=== PATIENT | male | born 1945 | race Caucasian/White ===

== ENCOUNTER 2020-09-25 13:01 | Inpatient (IN) | payer MEDICARE, BC ==
[~2020-09-25 13:01] MED LIST: Iopamidol-370 76% 500 ML 1 ML ONE
[2020-09-25] MEDS ORDERED: Diltiazem 125 MG/25 ML ONE (13:08)
[2020-09-25 13:42] LABS: #Lymphocytes 1.2 thou/uL (1.20-3.40); #Monocytes 0.9 thou/uL (0.11-0.59); #Neutrophils 11.4 thou/uL (1.40-6.50); %Basophils 0.1 % (0.0-1.0); %Eosinophils 0.4 % (0.0-10.0); %Lymphocytes 8.6 % (21.0-51.0); %Monocytes 6.8 % (0.0-10.0); %Neutrophils 84.1 % (42.0-75.0); Hemoglobin 11.7 g/dL (14.0-18.0); Mean Corpuscular HGB CONC 31.8 g/dL (32.0-36.0); Mean Corpuscular Hemoglobin 28.2 pg (27.0-31.0); Mean Corpuscular Volume 88.6 fL (78.0-98.0); Platelet Count 411 thou/uL (130-400); RBC Distribution Width 13.8 % (11.5-14.5); Red Blood Cell (RBC) Count 4.14 mill/uL (4.70-6.10); White Blood Cell (WBC) Count 13.5 thou/uL (4.8-10.8)
--- NOTE | 2020-09-25 13:49 | RAD ---
EXAM: Chest one view: HISTORY: New onset atrial fibrillation, altered mental status COMPARISON: 08/22/2020 FINDINGS: Moderate left pleural effusion developing since prior study. Heart size: Borderline in size with decreased inspiration. Lungs: Moderate alveolar and groundglass and linear opacity changes in the left midlung zone with imp roving interstitial and groundglass opacity changes in the right chest. IMPRESSION: New onset developing left pleural effusion as well as progressive and worsening parenchymal changes i n the left midlung zone. Minimally improved right lung. Continued short-term follow-up.
[2020-09-25 14:01] LABS: ALT (SGPT) 35 U/L (8-55); AST (SGOT) 18 U/L (5-34); Albumin 2.5 g/dL (3.4-4.8); Alkaline Phosphatase 161 U/L (40-110); Anion Gap 13 mmol/L (10-20); BUN (Urea Nitrogen) 16 mg/dL (8.4-25.7); Bilirubin, Total 0.6 mg/dL (0.2-1.2); Calc. Creatinine Clearance 0 mL/min (70-130); Calcium 8.5 mg/dL (7.8-10.44); Carbon Dioxide 25 mmol/L (23-31); Chloride 102 mmol/L (98-107); Estimated GFR-MDRD Greater than 90; Globulin 3.9 g/dL (2.4-3.5); Glucose 122 mg/dL (83-110); Protein, Total 6.4 g/dL (5.8-8.1); Sodium 136 mmol/L (136-145)
[2020-09-25] MEDS ORDERED: Acetaminophen 500 MG TAB ONE (14:11)
[2020-09-25 14:21] LABS: INR-International Normal Ratio 1.2; PTT 37.2 sec (22.9-36.1); Prothrombin Time 15.1 sec (12.0-14.7)
--- NOTE | 2020-09-25 14:49 | CT ---
Exam: Head CT without contrast HISTORY: Altered mental status. COMPARISON: 05/05/2020 FINDINGS: Hemorrhage: No intraparenchymal hemorrhage or extra-axial hematoma. Brain parenchyma: Cortical paris-white matter differentiation is preserved. No mass effect or midline shift. Basilar cisterns are patent.Stable white matter hypodensities due to chronic small ischemic change. Ventricular system: Ventricles and sulci are patent and symmetric. Calvarium: Intact. Sinuses and mastoid air cells: Adequate aeration. IMPRESSION: No acute intracranial process.
--- NOTE | 2020-09-25 15:14 | CT ---
CT ABDOMEN AND PELVIS WITH IV CONTRAST: 09/25/20 HISTORY: Abdominal pain and back pain. COMPARISON: 08/17/17. FINDINGS: There are patchy areas of consolidation in the lung bases bilaterally, left larger than right with ac companying left pleural effusion. The is an approximately 2 cm hemangioma in the posterior segment of the right lobe of the liver which is stable. Multiple cysts in the pancreas are also stable. The spl een and adrenal glands are unremarkable. No calcified gallstones are seen. Small cysts in the kidneys are again seen. No free air, free fluid, or lymphadenopathy is seen in the abdomen or pelvis. The small bowel loops a re not abnormally dilated. There is fecal material in the rectum and colon. Vascular calcifications a re present without evidence of aneurysmal dilatation of the abdominal aorta. There is mild compressio n of L1 vertebral body. There are vertebral hemangiomas in the spine. IMPRESSION: 1. Bilateral bibasilar lung consolidation, left greater than right with accompanying left pleura l effusion. 2. Constipation. 3. Stable liver, pancreas and renal findings since 08/17/17. POS: OFF
--- NOTE | 2020-09-25 16:03 | PDOC.FPRHP ---
- History of Present Illness Chief Complaint: fall History of Present Illness: Patient states he fell and his back hurts. He feels "like I'm going to !" He also reports feeling like he is burning up. Patient unable to provide adequate history. Called patient's for additional history - she explained patient has been complaining of severe back pain for the past 2 days, his HH nurse examined him today and felt a knot on his lower back and called EMS so that he could come to the ED and get better pain control. Patient has been taking tylenol which does not help. also reports increased productive cough the past few days as well as intermittent fever. ED Course: Patient transported by EMS. Noted to be in HR 160, a-fib w/ RVR. Given 14 mg diltiazem. HR went down to 90s. - Home Medications Medication Instructions Recorded Confirmed Type Digoxin [Lanoxin] 0.125 mg PO HS 09/25/20 09/25/20 History Famotidine 20 mg PO BID 09/25/20 09/25/20 History Metoprolol Succinate [Toprol XL] 100 mg PO DAILY 09/25/20 09/25/20 History Mirtazapine 7.5 mg PO HS 09/25/20 09/25/20 History Sertraline HCl 100 mg PO DAILY 09/25/20 09/25/20 History Tamsulosin HCl 0.4 mg PO HS 09/25/20 09/25/20 History levETIRAcetam [Keppra] 1,000 mg PO BID 09/25/20 09/25/20 History - History PMHx: Afib, Hemorrhagic CVA x3, epilepsy, anxiety, MDD, BPH, L1 compression fracture PSHx: knee surgery FHx: Non-contributory Social: Denies tobacco, alcohol or drug use. Patient lives at home with his , uses a walker, and has home health. - Review of Systems ROS unobtainable: due to mental status - Vital signs BP: 114/78, Pulse: 103, Resp: 27, Pain: 10, O2 sat: 95 on (Room Air), Time: 09/25/2020 16:21. Wt: 61kg - Physical Exam -Constitutional: screaming about the pain in his back HEENT: normocephalic and atraumatic, EOMI, no scleral icterus, grossly normal vision, grossly normal hearing Neck: FROM, no JVD Heart: no murmurs/rubs/gallops, pulses present, no edema -Heart: irregularly irregular rhythm Lungs: CTAB, no respiratory distress Abdomen: soft, bowel sounds present Musculoskeletal: normal structure, ROM grossly normal Neurological: no focal deficit -Neurological: AxO x2 to self and location. Normal strength in UE and LE. Psychiatric: other -Psychiatric: agitated, angry mood, congruent affect FMR H&P: Results - Labs Result Diagrams: 09/26/20 04:18 09/26/20 04:18 Lab results: WBC 13.5 thou/uL (4.8-10.8) H 09/25/20 13:32 Hgb 11.7 g/dL (14.0-18.0) L 09/25/20 13:32 Hct 36.7 % (42.0-52.0) L 09/25/20 13:32 MCV 88.6 fL (78.0-98.0) 09/25/20 13:32 Plt Count 411 thou/uL (130-400) H 09/25/20 13:32 Neutrophils % 84.1 % (42.0-75.0) H 09/25/20 13:32 Sodium 136 mmol/L (136-145) 09/25/20 13:32 Potassium 4.0 mmol/L (3.5-5.1) 09/25/20 13:32 Chloride 102 mmol/L (98-107) 09/25/20 13:32 Carbon Dioxide 25 mmol/L (23-31) 09/25/20 13:32 BUN 16 mg/dL (8.4-25.7) 09/25/20 13:32 Creatinine 0.70 mg/dL (0.7-1.3) 09/25/20 13:32 Glucose 122 mg/dL (83-110) H 09/25/20 13:32 Calcium 8.5 mg/dL (7.8-10.44) 09/25/20 13:32 Total Bilirubin 0.6 mg/dL (0.2-1.2) 09/25/20 13:32 AST 18 U/L (5-34) 09/25/20 13:32 ALT 35 U/L (8-55) 09/25/20 13:32 Alkaline Phosphatase 161 U/L (40-110) H 09/25/20 13:32 B-Natriuretic Peptide 236.4 pg/mL (0-100) H 09/25/20 13:25 Serum Total Protein 6.4 g/dL (5.8-8.1) 09/25/20 13:32 Albumin 2.5 g/dL (3.4-4.8) L 09/25/20 13:32 - EKG Interpretation EKG: Atrial fibrillation - Radiology Interpretation Chest x-ray Status: report reviewed by me (moderate left pleural effusion as well as progressive and worsening parenchymal changes in left midlung zone. minimally improved right lung) CT scan - head Status: report reviewed by me (no acute intracranial process) CT scan - abdomen Status: report reviewed by me (Abd/Pelvis: mild compression of L1 vertebral body. bilateral bibasilar lung consolidation, left greater than right with accompanying left pleural effusion. constipation. stable liver, pancreas and renal findings since 08/17/2017) FMR H&P: A/P - Plan Afib w/RVR - History of Afib, takes digoxin and metoprolol at home. Patient is not on anticoagulation due to history of hemorrhagic CVAs and frequent falls. - Presenting HR 160s, received dilt and started on dilt drip in ED - Continue diltiazem drip - TSH, Mg, Phos ordered - ECHO pending Hospital Acquired Pneumonia vs. Community Acquired Pneumonia - Hospitalized 08/15-08/30 for COVID pneumonia - reports intermittent fever and increasing productive cough for the past few days - CXR: new onset developing left pleural effusion as well as progressive and worsening parenchymal changes in left midlung zone - WBC 13.5 - Received azithromycin and cefepime in ED - Continue cefepime. Start vancomycin - Procal pending Chronic L1 Compression Fracture - Has been complaining of increasing pain in back the past 2 days. Takes tylenol prn which does not help. - Abd/pelvix CT showed stable L1 compression fracture - Lumbar spine: stable L1 compression fracture - Scheduled tylenol and ibuprofen. Tramadol prn for pain Epilepsy - Continue home Keppra - Seizure precautions Hemorrhagic CVAx3 - History of frequent falls. No anticoagulation. - Fall precautions Anxiety - Continue sertraline and mirtazapine Depression - Continue sertraline and mirtazapine BPH - Continue tamsulosin DVT: SCDs Code: FULL PCP: [facility] Dispo: Admit to tele for rate control and treatment of pneumonia FMR H&P: Upper Level - Pertinent history Patient is 75 yo M admitted for A-fib w/ RVR. Came by EMS who started him on diltiazem. Denies chest pain, SOB. tells us they called EMS for extreme back pain and increased cough. Patient is agitated and yelling on exam. He is unable to provide us with much information other than he fell and has back pain. Has chronic L1 fracture. ROS unobtainable due to patient's dementia and mental status. - Pertinent findings VS: BP: 114/78, Pulse: 103, Resp: 27, Pain: 10, O2 sat: 95 on (Room Air), Time: 09/25/2020 16:21. PEx: Gen: NAD Lungs: no acute respiratory distress Heart: irregularly irregular MSK: tenderness when attempting to move patient. Neuro: AxO to person/place, not to time. Strength 5/5 in upper and lower extremities bilaterally. Psych: agitated, angry mood, congruent affect, speech clear Labs and imaging reviewed. CXR showing worsening L pleural effusion and infiltrates compared to prior. CT head: no acute intracranial abnormality Overall stable labs including normal TSH and troponin. - Plan Date/Time: 09/25/20 1603 A-fib w/ RVR - continue diltiazem drip - admit to tele inpatient unit - appears to have had a-fib previously and was on digoxin and other meds - do not anticoagulate due to hemorrhagic CVAs and hx of falls. Pneumonia, hospitalized and discharged on 08/30 - cover for hospital acquired pneumonia - was admitted for Covid at prior hospitalization - cover for pseudomonas given recent hospital stay, Vanc & cefepime. - procal ordered and pending. Chronic conditions: Chronic L1 compression fracture - pain control w/ tylenol, tramadol, ibuprofen - repeat L-spine XR to assess increasing pain Hx hemorrhagic CVAs x3 - contraindicated to anticoagulate Hx of falls - also another reason to hold anticoagulation BPH Dementia MDD Epilepsy - continue home meds Code: FULL VTE ppx: SCDs only GI ppx: none IVF: KVO Dispo: admit to inpatient tele unit. IJuliana, have evaluated this patient and agree with findings/plan as outlined by accounting intern resident. Pertinent changes/additions are listed above. Addendum - Attending - Attending Attestation Date/Time: 09/26/20 [id number] I personally evaluated the patient and discussed the management with Dr. Castillo. I agree with the History, Examination, Assessment and Plan documented above with any addition or exceptions noted below. Afib with RVR - diltiazem. Not a candidate for anticoag 2/2 h/o multiple CVA's and frequent falls.
[2020-09-25] MEDS ORDERED: Cefepime 2 GM VIAL ONE (16:10)
[2020-09-25] MEDS ORDERED: Azithromycin 500 MG VIAL ONE (16:10)
[2020-09-25] MEDS ORDERED: Acetaminophen 650 MG Suppository PR PRN (16:46)
[2020-09-25] MEDS ORDERED: traMADol HCl 50 MG TAB PO PRN (16:46)
[2020-09-25] MEDS ORDERED: Acetaminophen 325 MG TAB PO PRN (16:46)
[2020-09-25] MEDS ORDERED: Ondansetron ODT 4 MG TAB PO PRN (16:46)
[2020-09-25] MEDS ORDERED: Ondansetron PF 4 MG/2 ML Vial IVP PRN (16:46)
[2020-09-25] MEDS ORDERED: Diltiazem 125 MG in Sodium Chloride 0.9% 100 ML IVPB SCH (17:15)
[2020-09-25 17:36] LABS: Troponin I Less than 0.010 ng/mL (< 0.028)
--- NOTE | 2020-09-25 17:42 | RAD ---
EXAM: XR Lumbar Spine 2 Or 3 View PROVIDED CLINICAL HISTORY: Back pain and altered mental status. COMPARISON: 08/15/2020 FINDINGS: Again noted is the compression fracture of the L1 vertebral body with approximately 75% loss of heigh t. There is again exaggerated kyphosis of the thoracolumbar spine centered at this level. Remaining vertebral body heights are within normal limits, and there is no evidence of a subluxation. There are degenerative changes at the T12-L1 level. Vascular calcifications are seen in the thoracic aorta. Calcification is seen overlying the right upp er quadrant which is difficult to further localize on this exam. Recent CT scan examination also obtained on this date does not demonstrate a calcification in this region. This could be related to o verlying artifact. Contrast is seen within the urinary bladder related to recent contrasted exam. IMPRESSION: 1. Stable height loss of compression/burst fracture L1 vertebral body. No additional fracture or subl uxation is seen involving the lumbar spine.
[2020-09-25 17:45] LABS: Magnesium 1.7 mg/dL (1.6-2.6); Phosphorus 2.4 mg/dL (2.3-4.7)
[2020-09-25 20:17] LABS: Troponin I Less than 0.010 ng/mL (< 0.028)
[2020-09-25] MEDS ORDERED: Vancomycin 1 GM/200 ML BAG ONE (20:22)
[2020-09-25] MEDS ORDERED: Digoxin 0.125 MG TAB ONE (20:22)
[2020-09-25] MEDS ORDERED: Famotidine 20 MG TAB ONE (20:22)
[2020-09-25] MEDS ORDERED: Ibuprofen 800 MG TAB ONE (20:22)
[2020-09-25] MEDS ORDERED: Acetaminophen 325 MG TAB ONE (20:22)
[2020-09-25] MEDS: Acetaminophen 325 MG TAB PO SCH (20:35)
[2020-09-25] MEDS: Ibuprofen 800 MG TAB PO SCH (20:36)
[2020-09-25] MEDS: Famotidine 20 MG TAB PO SCH (20:36)
[2020-09-25] MEDS: Digoxin 0.125 MG TAB PO SCH (20:36)
[2020-09-25] MEDS: Vancomycin 1 GM in Premix Bag 1 BAG IVPB SCH (20:37)
[2020-09-25] MEDS: Tamsulosin HCl 0.4 MG CAP PO SCH (20:37)
[2020-09-25] MEDS: levETIRAcetam 500 MG TAB PO SCH (20:37)
[2020-09-25] MEDS: Mirtazapine 15 MG TAB PO SCH (20:37)
[2020-09-25] MEDS ORDERED: Cefepime 1 GM in Sodium Chloride 0.9% 100 ML IVPB SCH (21:00)
[2020-09-26 01:51] VITALS: BMI 19.3
[2020-09-26 01:58] LABS: Bacteria/HPF None Seen HPF (None Seen); Bilirubin Negative (Negative); Blood, Urine 1+ (Negative); Clarity Clear (Clear); Glucose, Urine (Dipstick) Normal (Negative); Ketone, Urine Trace mg/dL (Negative); Leukocyte Negative Leu/uL (Negative); Nitrite Negative (Negative); Protein, Urine (Dipstick) 30 mg/dL (Neg-Trace); RBC/HPF 21-50 HPF (0-3); Squamous Epithelial 0-3 HPF (0-3)
[2020-09-26 01:59] LABS: Specific Gravity, Urine Greater than 1.060 (1.002-1.036)
[2020-09-26 02:44] LABS: SARS-CoV-2 MS2 Positive; SARS-CoV-2 N Gene Positive; SARS-CoV-2 S Gene Positive; SARS-CoV-2 by NAA DETECTED (NotDetected); SARS-CoV-2 orf1ab Positive
[2020-09-26 04:43] LABS: #Basophils 0.1 thou/uL (0.0-0.2); #Eosinphils 0.1 thou/uL (0.0-0.7); #Lymphocytes 1.3 thou/uL (1.20-3.40); #Monocytes 1.1 thou/uL (0.11-0.59); #Neutrophils 8.5 thou/uL (1.40-6.50); %Basophils 0.5 % (0.0-1.0); %Lymphocytes 11.4 % (21.0-51.0); %Monocytes 10.2 % (0.0-10.0); Hemoglobin 9.6 g/dL (14.0-18.0); Mean Corpuscular HGB CONC 31.6 g/dL (32.0-36.0); Mean Corpuscular Hemoglobin 27.8 pg (27.0-31.0); Mean Platelet Volume 7.2 fL (7.4-10.4); Platelet Count 366 thou/uL (130-400); RBC Distribution Width 13.8 % (11.5-14.5); Red Blood Cell (RBC) Count 3.47 mill/uL (4.70-6.10)
[2020-09-26 05:07] LABS: Anion Gap 13 mmol/L (10-20); BUN (Urea Nitrogen) 17 mg/dL (8.4-25.7); Calc. Creatinine Clearance 82 mL/min (70-130); Calcium 8.3 mg/dL (7.8-10.44); Carbon Dioxide 21 mmol/L (23-31); Chloride 105 mmol/L (98-107); Estimated GFR-MDRD Greater than 90; Glucose 112 mg/dL (83-110); Potassium 4.2 mmol/L (3.5-5.1); Sodium 135 mmol/L (136-145)
[2020-09-26] MEDS: Ibuprofen 800 MG TAB PO SCH ×4 (05:13→20:33)
[2020-09-26] MEDS: Cefepime 1 GM in Sodium Chloride 0.9% 100 ML IVPB SCH ×2 (05:13→16:52)
[2020-09-26] MEDS: Acetaminophen 325 MG TAB PO SCH ×4 (05:14→20:32)
--- NOTE | 2020-09-26 06:28 | PDOC.FM ---
- Subjective Subjective: Mr. Sherwood was sleeping comfortable and arousable for voice. He denies chest pain and says his back pain is improved. - Objective Vital Signs & Weight: Vital Signs (12 hours) Temp Pulse Resp BP Pulse Ox 09/26/20 03:32 98.3 F 65 21 H 92/55 L 95 09/26/20 01:47 72 88/51 L 09/26/20 01:30 97.6 F 78 20 90/51 L 95 09/25/20 20:36 102 H Weight Weight 61.961 kg Result Diagrams: 09/26/20 04:18 09/26/20 04:18 EKG Reviewed by me: Yes (tele: afib > aflutter > afib, rate controled) Phys Exam - Physical Examination Constitutional: NAD HEENT: moist MMs, sclera anicteric Neck: full ROM Respiratory: no wheezing, clear to auscultation bilateral Cardiovascular: RRR, no significant murmur Gastrointestinal: soft, non-tender Musculoskeletal: no edema, pulses present Neurological: non-focal Deviation from normal: A&O x2, improved affect from yesterday - calm and coope rative Skin: no rash Dx/Plan - Plan Plan: Afib w/RVR - History of Afib, takes digoxin and metoprolol at home. Patient is not on anticoagulation due to history of hemorrhagic CVAs and frequent falls. - Presenting HR 160s, received dilt and started on dilt drip in ED. Diltz drip turned off during the night when patient became rate control and had HR in the 50s - TSH, Mg, Phos wnl - ECHO pending Hospital Acquired Pneumonia vs. Community Acquired Pneumonia - Hospitalized 08/15-08/30 for COVID pneumonia - reports intermittent fever and increasing productive cough for the past few days - CXR: new onset developing left pleural effusion as well as progressive and worsening parenchymal changes in left midlung zone - WBC 13.5 > 11.0 - Procal 8.24 - Received azithromycin and cefepime in ED - Continue cefepime and vancomycin Chronic L1 Compression Fracture - Has been complaining of increasing pain in back the past 2 days. Takes tylenol prn which does not help. - Abd/pelvix CT showed stable L1 compression fracture - Lumbar spine: stable L1 compression fracture - Scheduled tylenol and ibuprofen. Tramadol prn for pain - Patient denies back pain this AM Epilepsy - Continue home Keppra - Seizure precautions Hemorrhagic CVAx3 - History of frequent falls. No anticoagulation. - Fall precautions Anxiety - Continue sertraline and mirtazapine Depression - Continue sertraline and mirtazapine BPH - Continue tamsulosin DVT: SCDs Code: FULL PCP: [facility] Dispo: Continue antibiotics for treatment of pneumonia. Back pain seems better controlled on current pain medications. Will place CM consult to assist with post discharge plan. Addendum - Attending - Attending Attestation Date/Time: 09/26/20 [id number] I personally evaluated the patient and discussed the management with Dr. Castillo. I agree with the History, Examination, Assessment and Plan documented above with any addition or exceptions noted below. Hypotensive 2/2 dilt. I do not feel due to sepsis. Continue antibiotics. Order sputum culture. D/c diltiazem.
[2020-09-26] MEDS: levETIRAcetam 500 MG TAB PO SCH ×2 (08:53→20:33)
[2020-09-26] MEDS: Famotidine 20 MG TAB PO SCH ×2 (08:54→20:32)
[2020-09-26] MEDS: Vancomycin 1 GM in Premix Bag 1 BAG IVPB SCH ×2 (08:55→20:32)
[2020-09-26] MEDS ORDERED: Lactated Ringer's 500 ML IV SCH ×2 (13:00→16:00)
[2020-09-26] MEDS: Digoxin 0.125 MG TAB PO SCH (20:32)
[2020-09-26] MEDS: Mirtazapine 15 MG TAB PO SCH (20:33)
[2020-09-26] MEDS: Tamsulosin HCl 0.4 MG CAP PO SCH (20:33)
[2020-09-26] MEDS ORDERED: Ziprasidone 20 MG CAP PO SCH (22:45)
[2020-09-26] MEDS ORDERED: Sterile Water 10 ML VIAL FS PRN (23:15)
[2020-09-26] MEDS ORDERED: Ziprasidone 20 MG VIAL IM SCH (23:15)
[2020-09-27] MEDS: Cefepime 1 GM in Sodium Chloride 0.9% 100 ML IVPB SCH ×2 (04:11→16:51)
[2020-09-27] MEDS: Acetaminophen 325 MG TAB PO SCH ×4 (04:12→22:03)
[2020-09-27] MEDS: Ibuprofen 800 MG TAB PO SCH ×4 (04:12→22:02)
--- NOTE | 2020-09-27 06:51 | PDOC.FM ---
- Subjective Subjective: Patient expressing SI and became increasingly agitated last night. Was given a sitter, geodon, and placed on restraints. Patient was sleeping this morning. When woken up he exclaims, "kill me! Give me arsenic!" Expressed to patient I would return later this evening to call his and let him talk to her. - Objective Vital Signs & Weight: Vital Signs (12 hours) Temp Pulse Resp BP Pulse Ox 09/27/20 04:20 97.1 F L 91 18 113/59 L 97 09/26/20 20:32 81 09/26/20 20:00 93 L 09/26/20 19:00 98.8 F 81 20 117/68 93 L Weight Weight 61.961 kg I&O: 09/25/20 09/26/20 09/27/20 06:59 06:59 06:59 Intake Total 2415 Balance 2415 Result Diagrams: 09/27/20 06:57 09/27/20 06:57 EKG Reviewed by me: Yes (tele: Afib 60-110s) Phys Exam - Physical Examination agitated, screaming HEENT: sclera anicteric Neck: no JVD, full ROM Respiratory: no wheezing, clear to auscultation bilateral irregular rate Gastrointestinal: soft, non-tender, no distention Musculoskeletal: no edema, pulses present Neurological: moves all 4 limbs Deviation from normal: aggitated, A&Ox1 Dx/Plan - Plan Plan: Hospital Acquired Pneumonia vs. Community Acquired Pneumonia - Hospitalized 08/15-08/30 for COVID pneumonia - reports intermittent fever and increasing productive cough for the past few days - CXR: new onset developing left pleural effusion as well as progressive and worsening parenchymal changes in left midlung zone - WBC 13.5 > 11.0 > 10.1 - Procal 8.24 - Received azithromycin and cefepime in ED - Continue cefepime and vancomycin - Repeat CXR and Procal today - Consider d/c vanc tomorrow and switching to oral antibiotics Afib w/RVR - History of Afib, takes digoxin and metoprolol at home. Patient is not on anticoagulation due to history of hemorrhagic CVAs and frequent falls. - Presenting HR 160s, received dilt and started on dilt drip in ED. Dilt drip now off. - TSH, Mg, Phos wnl - ECHO pending Chronic L1 Compression Fracture - Has been complaining of increasing pain in back the past 2 days. Takes tylenol prn which does not help. - Abd/pelvix CT showed stable L1 compression fracture - Lumbar spine: stable L1 compression fracture - Scheduled tylenol and ibuprofen. Tramadol prn for pain - Patient complains of back pain this AM Dementia - patient increasingly agitated - currently has sitter and in restraints - Encourage nursing to reorient patient though it is challenging due to his blindness - CM consult placed: patient came from home with HH. Will likely return home SI - see above Epilepsy - Continue home Keppra - Seizure precautions Hemorrhagic CVAx3 - History of frequent falls. No anticoagulation. - Fall precautions Anxiety - Continue sertraline and mirtazapine Depression - Continue sertraline and mirtazapine BPH - Continue tamsulosin DVT: SCDs Code: FULL PCP: [facility] Dispo: Recheck procal and CXR today. Consider discontinuing vancomycin tomorrow. Addendum - Attending - Attending Attestation Date/Time: 09/27/20 1010 I personally evaluated the patient and discussed the management with Dr. Castillo. I agree with the History, Examination, Assessment and Plan documented above with any addition or exceptions noted below. HAP -continue broad spectrum coverage -PCT improving Acute delirium 2/2 above -will d/w concerning goals of care and possible dc
[2020-09-27 07:11] LABS: #Eosinphils 0.2 thou/uL (0.0-0.7); #Lymphocytes 1.5 thou/uL (1.20-3.40); #Monocytes 1.2 thou/uL (0.11-0.59); #Neutrophils 7.3 thou/uL (1.40-6.50); %Basophils 0.1 % (0.0-1.0); %Eosinophils 1.8 % (0.0-10.0); %Lymphocytes 14.4 % (21.0-51.0); %Monocytes 11.4 % (0.0-10.0); %Neutrophils 72.3 % (42.0-75.0); Hemoglobin 10.1 g/dL (14.0-18.0); Mean Corpuscular HGB CONC 32.2 g/dL (32.0-36.0); Mean Corpuscular Hemoglobin 27.9 pg (27.0-31.0); Mean Corpuscular Volume 86.8 fL (78.0-98.0); Platelet Count 380 thou/uL (130-400); RBC Distribution Width 13.8 % (11.5-14.5); Red Blood Cell (RBC) Count 3.62 mill/uL (4.70-6.10); White Blood Cell (WBC) Count 10.1 thou/uL (4.8-10.8)
[2020-09-27 07:28] LABS: Anion Gap 13 mmol/L (10-20); BUN (Urea Nitrogen) 15 mg/dL (8.4-25.7); Calc. Creatinine Clearance 79 mL/min (70-130); Carbon Dioxide 20 mmol/L (23-31); Chloride 106 mmol/L (98-107); Estimated GFR-MDRD Greater than 90; Glucose 90 mg/dL (83-110); Potassium 3.9 mmol/L (3.5-5.1); Sodium 135 mmol/L (136-145)
[2020-09-27] MEDS: Vancomycin 1 GM in Premix Bag 1 BAG IVPB SCH ×2 (09:29→22:06)
[2020-09-27] MEDS: levETIRAcetam 500 MG TAB PO SCH ×2 (09:30→22:05)
[2020-09-27] MEDS: Famotidine 20 MG TAB PO SCH ×2 (09:31→22:02)
--- NOTE | 2020-09-27 10:20 | RAD ---
PORTABLE CHEST: HISTORY: Pleural effusion. COMPARISON: 09/25/2020. FINDINGS: Diffuse infiltrate throughout the left lung shows no change from 09/25 exam. Patchy infiltrate in the right lower lung is also stable in appearance. Left effusion and left effusion and left basilar ate lectasis again noted. Pleural fluid layering along the lateral chest wall was unchanged in appearanc e. IMPRESSION: No significant change in the chest from 09/25/2020. POS: AGW
--- NOTE | 2020-09-27 15:20 | PQF ---
CLINICAL DOCUMENTATION CLARIFICATION FORM: Dear Dr. Castillo Date: 09/27/20 Please exercise your independent, professional judgment in responding to the clarification form. Clinical indicators are provided on the bottom of this form for your review. Please check appropriate box(es): [ x ] Encephalopathy: Type: [ x ] Acute [ ] Subacute [ ] Chronic Etiology: [ ] Hypertensive [ ] Metabolic [ ] Toxic [ ] Hypoxic [ ] Septic [ ] Drug induced: [ x ] In the setting of underlying dementia ' [ ] Unspecified [ ] Other (please specify) [ ] Transient Alteration of Awareness [ ] Other diagnosis [ ] Unable to determine In addition, please specify: Present on Admission (POA): [ x ] Yes [ ] No [ ] Unable to determine For continuity of documentation, please document condition throughout progress notes and discharge summary. Thank You. To be completed by CDI/Coding staff for physician review: CLINICAL INDICATORS - SIGNS / SYMPTOMS / LABS / RESULTS AND LOCATION IN EMR PN 09/27 ([place]): "PATIENT EXPRESSING SI AND BECAME INCREASINGLY AGITATED LAST NIGHT. EXCLAIMS, 'KILL ME! GIVE ME ARSENIC!" RISK FACTORS / RESULTS AND LOCATION IN EMR H/O DEMENTIA (PN 09/27- [place]) PNEUMONIA (PN 09/27 - [place]) ACUTE DELIRIUM (PN 09/27- [place]) TREATMENTS / RESULTS AND LOCATION IN EMR SITTER (PN 09/27-[place]) IV MAXIPIME ER-PRESENT) IV AZITHROMYCIN (ER) IV VANCOMYCIN (09/25-PRESENT) IM GEODON (09/26) CDS Signature: Rosa M Chris RN Phone #: [phone] Date/Time: 09/27/20 This is a permanent part of the Medical Record [facility]
[2020-09-27 20:23] LABS: Vancomycin, Trough 15.8 ug/mL
[2020-09-27] MEDS: Tamsulosin HCl 0.4 MG CAP PO SCH (22:02)
[2020-09-27] MEDS: Mirtazapine 15 MG TAB PO SCH (22:04)
[2020-09-27] MEDS: Digoxin 0.125 MG TAB PO SCH (22:05)
[2020-09-28] MEDS: Acetaminophen 325 MG TAB PO SCH ×3 (04:29→15:58)
[2020-09-28] MEDS: Ibuprofen 800 MG TAB PO SCH ×3 (04:30→15:59)
[2020-09-28] MEDS: Cefepime 1 GM in Sodium Chloride 0.9% 100 ML IVPB SCH (04:31)
[2020-09-28 05:04] LABS: #Basophils 0.1 thou/uL (0.0-0.2); #Eosinphils 0.2 thou/uL (0.0-0.7); #Lymphocytes 1.3 thou/uL (1.20-3.40); #Neutrophils 6.5 thou/uL (1.40-6.50); %Basophils 0.8 % (0.0-1.0); %Eosinophils 2.6 % (0.0-10.0); %Lymphocytes 14.7 % (21.0-51.0); %Monocytes 11.2 % (0.0-10.0); %Neutrophils 70.9 % (42.0-75.0); Hemoglobin 9.9 g/dL (14.0-18.0); Mean Corpuscular HGB CONC 31.6 g/dL (32.0-36.0); Mean Corpuscular Hemoglobin 27.6 pg (27.0-31.0); Mean Corpuscular Volume 87.2 fL (78.0-98.0); Mean Platelet Volume 6.9 fL (7.4-10.4); Platelet Count 455 thou/uL (130-400); RBC Distribution Width 14.1 % (11.5-14.5); Red Blood Cell (RBC) Count 3.58 mill/uL (4.70-6.10); White Blood Cell (WBC) Count 9.2 thou/uL (4.8-10.8)
[2020-09-28 05:25] LABS: Anion Gap 13 mmol/L (10-20); BUN (Urea Nitrogen) 14 mg/dL (8.4-25.7); Calc. Creatinine Clearance 69 mL/min (70-130); Calcium 8.3 mg/dL (7.8-10.44); Carbon Dioxide 23 mmol/L (23-31); Chloride 104 mmol/L (98-107); Estimated GFR-MDRD Greater than 90; Glucose 85 mg/dL (83-110); Potassium 3.9 mmol/L (3.5-5.1); Sodium 136 mmol/L (136-145)
--- NOTE | 2020-09-28 06:47 | PDOC.FM ---
- Subjective Subjective: Mr. Sherwood was resting comfortably in bed and in no acute distress. Sitter was no present in the room. - Objective Vital Signs & Weight: Vital Signs (12 hours) Temp Pulse Resp BP Pulse Ox 09/28/20 03:02 94 L 09/27/20 22:05 79 09/27/20 21:45 98.4 F 100 20 96/52 L 95 Weight Weight 61.961 kg I&O: 09/26/20 09/27/20 09/28/20 06:59 06:59 06:59 Intake Total 2415 580 Balance 2415 580 Result Diagrams: 09/28/20 04:37 09/28/20 04:37 EKG Reviewed by me: Yes (tele: Afib) Phys Exam - Physical Examination Constitutional: NAD HEENT: moist MMs, sclera anicteric Neck: no JVD Respiratory: no wheezing, clear to auscultation bilateral Cardiovascular: no significant murmur irregular rate Gastrointestinal: soft, non-tender Musculoskeletal: no edema, pulses present Neurological: non-focal Skin: no rash Dx/Plan - Plan Plan: Hospital Acquired Pneumonia vs. Community Acquired Pneumonia - Hospitalized 08/15-08/30 for COVID pneumonia - reports intermittent fever and increasing productive cough for the past few days - CXR: new onset developing left pleural effusion as well as progressive and worsening parenchymal changes in left midlung zone. No change on repeat. - WBC 13.5 > 9.2 - Procal 8.24, 2.79 - Received azithromycin and cefepime in ED - Continue cefepime and vancomycin - d/c vanc today and switching to oral antibiotics Afib w/RVR - History of Afib, takes digoxin and metoprolol at home. Patient is not on anticoagulation due to history of hemorrhagic CVAs and frequent falls. - Presenting HR 160s, received dilt and started on dilt drip in ED. Dilt drip now off. - TSH, Mg, Phos wnl - ECHO: EF 50-55% Chronic L1 Compression Fracture - Was complaining of increasing back pain at presentation. Was taking tylenol prn which did not help. - Abd/pelvix CT showed stable L1 compression fracture - Lumbar spine: stable L1 compression fracture - Scheduled tylenol and ibuprofen. Tramadol prn for pain - Pain appears better controlled Dementia - Consider d/c sitter or restraints - Encourage nursing to reorient patient though it is challenging due to his blindness - CM consult placed: patient came from home with HH. Will likely return home - Palliative consult: Son is understandable and open to palliative or hospice care. is more resistant. Will continue goals of care discussions. SI - see above Epilepsy - Continue home Keppra - Seizure precautions Hemorrhagic CVAx3 - History of frequent falls. No anticoagulation. - Fall precautions Anxiety - Continue sertraline and mirtazapine Depression - Continue sertraline and mirtazapine BPH - Continue tamsulosin DVT: SCDs Code: FULL PCP: [facility] Dispo: Discontinue vanc. Continue GOC discussions with and son. Consider discharge home today. Addendum - Attending - Attending Attestation Date/Time: 09/28/20 4586 I personally evaluated the patient and discussed the management with the team. I agree with the History, Examination, Assessment and Plan documented above with any addition or exceptions noted below. Markedly improved and in no respiratory distress. Small effusion with no evidence of layering and too small to safely tap IMO (he would need to be sedated for this if it were). Transition to PO and hopeful d/c. Discussed with family who are in agreement.
[2020-09-28] MEDS: Vancomycin 1 GM in Premix Bag 1 BAG IVPB SCH (08:51)
[2020-09-28] MEDS: Famotidine 20 MG TAB PO SCH (09:02)
[2020-09-28] MEDS: levETIRAcetam 500 MG TAB PO SCH (09:02)
[2020-09-28 11:09] VITALS: TEMP 97.9
[2020-09-28 16:30] VITALS: BP 95/52
== END 2020-09-28 18:45 | disposition home health service (06) | DRG 177 ==
LOC: ERS 13:01 → ERHOLD 15:48 → 2NO 09-26 01:18
PROVIDERS: ADMIT Emergency Medicine; ATTEND Emergency Medicine
DX: U07.1 COVID-19 (principal); J12.89 Other viral pneumonia; M48.56XA Collapsed vertebra, not elsewhere classified, lumbar region, initial encounter for fracture; J90 Pleural effusion, not elsewhere classified; F05 Delirium due to known physiological condition; G93.49 Other encephalopathy; I48.91 Unspecified atrial fibrillation; F41.9 Anxiety disorder, unspecified; F32.9 Major depressive disorder, single episode, unspecified; N40.0 Benign prostatic hyperplasia without lower urinary tract symptoms; G40.909 Epilepsy, unspecified, not intractable, without status epilepticus; F03.90 Unspecified dementia, unspecified severity, without behavioral disturbance, psychotic disturbance, mood disturbance, and anxiety; R29.6 Repeated falls; Z86.73 Personal history of transient ischemic attack (TIA), and cerebral infarction without residual deficits; Z91.81 History of falling
CPT/HCPCS: 36415; 51701; 70450; 71045; 72100; 74177; 80048; 80053; 80202; 81003; 81015; 83735; 83880; 84100; 84145; 84443; 84484; 85025; 85610; 85730; 87040; 87086; 87149; 87635; 93005; 93306; 96365; 96366; 96368; 96375; J0456; J0692; J3370; J3490; Q9967; U0003

== ENCOUNTER 2020-10-01 12:26 | Inpatient (IN) | payer MEDICARE, BC ==
[2020-10-01 13:43] LABS: #Eosinphils 0.1 thou/uL (0.0-0.7); #Lymphocytes 1.5 thou/uL (1.20-3.40); #Neutrophils 9.9 thou/uL (1.40-6.50); %Basophils 0.3 % (0.0-1.0); %Eosinophils 0.6 % (0.0-10.0); %Lymphocytes 12.3 % (21.0-51.0); %Monocytes 8.1 % (0.0-10.0); %Neutrophils 78.7 % (42.0-75.0); Hemoglobin 9.5 g/dL (14.0-18.0); Mean Corpuscular HGB CONC 31.4 g/dL (32.0-36.0); Mean Corpuscular Hemoglobin 27.6 pg (27.0-31.0); Mean Corpuscular Volume 87.9 fL (78.0-98.0); Mean Platelet Volume 6.4 fL (7.4-10.4); Platelet Count 517 thou/uL (130-400); Red Blood Cell (RBC) Count 3.44 mill/uL (4.70-6.10); White Blood Cell (WBC) Count 12.6 thou/uL (4.8-10.8)
[2020-10-01] MEDS ORDERED: Piperacillin/Tazobactam 4.5 GM VIAL ONE (13:58)
[2020-10-01] MEDS ORDERED: Vancomycin 1 GM/200 ML BAG ONE (13:58)
[2020-10-01 14:00] LABS: ALT (SGPT) 16 U/L (8-55); AST (SGOT) 21 U/L (5-34); Alkaline Phosphatase 135 U/L (40-110); Anion Gap 12 mmol/L (10-20); BUN (Urea Nitrogen) 12 mg/dL (8.4-25.7); Bilirubin, Total 0.8 mg/dL (0.2-1.2); CK (CPK) 11 U/L (30-200); Calc. Creatinine Clearance 0 mL/min (70-130); Calcium 7.9 mg/dL (7.8-10.44); Carbon Dioxide 25 mmol/L (23-31); Chloride 105 mmol/L (98-107); Globulin 3.7 g/dL (2.4-3.5); Glucose 98 mg/dL (83-110); Magnesium 1.6 mg/dL (1.6-2.6); Potassium 4.6 mmol/L (3.5-5.1); Protein, Total 5.7 g/dL (5.8-8.1); Sodium 137 mmol/L (136-145)
--- NOTE | 2020-10-01 14:02 | RAD ---
Exam: Chest one view HISTORY:Fever. Recent COVID pneumonia. Pain. Comparison: 09/27/2020 FINDINGS: Cardiac silhouette:Normal cardiac silhouette Aorta: Unremarkable Pulmonary vessels: Normal Costophrenic angles: Worsening left-sided effusion. LUNGS: Worsening interstitial and alveolar opacities. Pneumothorax: None Osseous abnormalities: None IMPRESSION: Progression of COVID pneumonia.
[2020-10-01 14:44] LABS: Bacteria/HPF None Seen HPF (None Seen); Bilirubin Negative (Negative); Blood, Urine Trace (Negative); Clarity Clear (Clear); Glucose, Urine (Dipstick) Normal (Negative); Ketone, Urine Negative (Negative); Leukocyte Negative Leu/uL (Negative); Nitrite Negative (Negative); Protein, Urine (Dipstick) 30 mg/dL (Neg-Trace); Specific Gravity, Urine 1.032 (1.002-1.036); Squamous Epithelial 0-3 HPF (0-3); Urobilinogen Greater than 12 mg/dL (Less than 2); WBC/HPF 0-3 HPF (0-3)
[2020-10-01] MEDS ORDERED: Diltiazem 125 MG/25 ML ONE (14:53)
--- NOTE | 2020-10-01 15:28 | PDOC.FPRHP ---
- History of Present Illness Chief Complaint: fever History of Present Illness: Mr. Sherwood is a 75 yo M presenting via EMS complaining of back pain. Patient was admitted last week for HAP and discharged home on levaquin. Per patient's , Estelle, patient has been taking his antibiotics and generally doing well other than complaining of back pain. She has been giving him scheduled tylenol but it does not seem to be helping. Patient was also febrile today at home with a Tmax of 103. Estelle explains patient's personality has changed since his admission in July for COVID pneumonia - he is more agitated with her and always asking her to "kill me, kill me" as well as expressing that he dislikes her cooking when he did not previously. Mr. Sherwood says he just generally does not feel well but has no specific complaints other than back pain. ED Course: Patient was tachycardic and tachypneic and found to be in Afib w/RVR and received 10mg of dilt. He also received vanc and zosyn. - Allergies/Adverse Reactions Allergies Allergy/AdvReac Type Severity Reaction Status Date / Time No Known Drug Allergies Allergy Verified 09/28/20 08:26 - Home Medications Medication Instructions Recorded Confirmed Type Digoxin [Lanoxin] 0.125 mg PO HS 09/25/20 10/01/20 History Famotidine 20 mg PO BID 09/25/20 10/01/20 History Metoprolol Succinate [Toprol XL] 100 mg PO DAILY 09/25/20 10/01/20 History Mirtazapine 7.5 mg PO HS 09/25/20 10/01/20 History Sertraline HCl 100 mg PO DAILY 09/25/20 10/01/20 History Tamsulosin HCl 0.4 mg PO HS 09/25/20 10/01/20 History levETIRAcetam [Keppra] 1,000 mg PO BID 09/25/20 10/01/20 History Acetaminophen [Tylenol Regular 650 mg PO 0300,0900,1500,2100 30 09/28/20 10/01/20 Rx Strength] Days #120 tab Levofloxacin [Levaquin] 750 mg PO 0600 6 Days #6 tab 09/28/20 10/01/20 Rx - History PMHx: Afib, hemorrhagic CVAx3, epilepsy, anxiety, MDD, BPH, L1 compression fracture PSHx: knee surgery FHx: Non-contributory Social: Denies tobacco, alcohol, or drug use. Patient lives at home with his , uses a walker, and has home health. - Review of Systems ROS unobtainable: due to mental status - Vital signs BP: 112/67 HR: 110 RR: 28 Tmax: 98.9 Pox: 94% on RA Wt: 61kg - Physical Exam Constitutional: NAD HEENT: normocephalic and atraumatic, no scleral icterus, grossly normal hearing -HEENT: dry mucous membranes, blind Neck: no JVD Heart: RRR, no murmurs/rubs/gallops Lungs: CTAB, no respiratory distress Abdomen: soft, non-tender Musculoskeletal: normal structure Neurological: no focal deficit Skin: no rash/lesions Heme/Lymphatic: no unusual bruising or bleeding FMR H&P: Results - Labs Result Diagrams: 10/01/20 13:29 10/01/20 13:29 Lab results: WBC 12.6 thou/uL (4.8-10.8) H 10/01/20 13:29 Hgb 9.5 g/dL (14.0-18.0) L 10/01/20 13:29 Hct 30.3 % (42.0-52.0) L 10/01/20 13:29 MCV 87.9 fL (78.0-98.0) 10/01/20 13:29 Plt Count 517 thou/uL (130-400) H 10/01/20 13:29 Neutrophils % 78.7 % (42.0-75.0) H 10/01/20 13:29 Sodium 137 mmol/L (136-145) 10/01/20 13:29 Potassium 4.6 mmol/L (3.5-5.1) 10/01/20 13:29 Chloride 105 mmol/L (98-107) 10/01/20 13:29 Carbon Dioxide 25 mmol/L (23-31) 10/01/20 13:29 BUN 12 mg/dL (8.4-25.7) 10/01/20 13:29 Creatinine 0.72 mg/dL (0.7-1.3) 10/01/20 13:29 Glucose 98 mg/dL (83-110) 10/01/20 13:29 Lactic Acid 1.3 mmol/L (0.5-2.2) 10/01/20 13:29 Calcium 7.9 mg/dL (7.8-10.44) 10/01/20 13:29 Total Bilirubin 0.8 mg/dL (0.2-1.2) 10/01/20 13:29 AST 21 U/L (5-34) 10/01/20 13:29 ALT 16 U/L (8-55) 10/01/20 13:29 Alkaline Phosphatase 135 U/L (40-110) H 10/01/20 13:29 Creatine Kinase 11 U/L (30-200) L 10/01/20 13:29 Serum Total Protein 5.7 g/dL (5.8-8.1) L 10/01/20 13:29 Albumin 2.0 g/dL (3.4-4.8) L 10/01/20 13:29 Urine Ketones Negative mg/dL (Negative) 10/01/20 14:15 Urine Blood Trace (Negative) A 10/01/20 14:15 Urine Nitrite Negative (Negative) 10/01/20 14:15 Ur Leukocyte Esterase Negative Ayad/uL (Negative) 10/01/20 14:15 Urine RBC 4-6 HPF (0-3) A 10/01/20 14:15 Urine WBC 0-3 HPF (0-3) 10/01/20 14:15 Ur Squamous Epith Cells 0-3 HPF (0-3) 10/01/20 14:15 Urine Bacteria None Seen HPF (None Seen) 10/01/20 14:15 - EKG Interpretation EKG: Afib w/RVR, HR 120s - Radiology Interpretation Chest x-ray Status: image reviewed by me (L lobe infiltrate, possibly more superior than previous admission) FMR H&P: A/P - Plan 75 yo M discharged on 09/28 for HAP Sepsis 2/2 Hospital-acquired pneumonia vs aspiration pneumonia - Discharged home on 09/28 following clinical improvement of HAP on levaquin. Per , patient has been receiving antibiotics. - Tachycardic, tachypneic in ED, Tmax 103 at home. Received vanc and zosyn in ED. - WBC 12.6 (9.2 on discharge on 09/28) - Procal 0.29 - CXR: left lobe infiltrate - Speech eval pending, patient currently NPO - Continue vanc, start cefepime - BCx, UCx, and sputum culture pending - UA neg - 500mL bolus of LR Afib w/ RVR - Known history of Afib - Received 10mg of dilt in ED - Start dilt drip, titrate as tolerated - Continue home digoxin and metoprolol when patient is cleared for PO intake Hx of COVID pneumonia - Hospitalized in Jul. First positive test 08/10 - Does not need precautions Chronic L1 compression fracture - Repeat imaging on last hospitalization showed fracture was stabled - Scheduled tylenol and ibuprofen Dementia - reports patient has become more agitated and has displayed personality changes since his admission for COVID. Discussed palliative care during last hospitalization and explained she was not ready. - Palliative Consult to discuss GOC - PT/OT consult - CM consult for placement after discharge Hx of Hemorrhagic CVAx3 Epilepsy - Continue keppra Anxiety/ Depression - Continue mirtazapine and sertraline BPH - Continue tamsulosin DVT PPx: SCDs GI PPx: famotidine PCP: CORDELIA Dispo: Admit to tele. Will treat presumed pneumonia, evaluate for aspiration and continue palliative care discussions with . FMR H&P: Upper Level - Plan Date/Time: 10/01/20 1528 IYfn DO, have evaluated this patient and agree with findings/plan as outlined by video editing intern resident. Pertinent changes/additions are listed here. 75 yo m presents from home with a fever he was recently dc'd from our service on oral abx for a diagnosis of HCAP, he had a similar presentation at that time. reports fever of 103 measured at home by home health. pt is AOx1, much of history comes from and medical records. he has been taking medications as prescribed, no worsening dypnea, cough, or sputum production. In the ED he was noted to be in afib w rvr, given 10mg push. ekg c/w that, no ST changes, cxr appears unchanged from previous exam, he does have a wbc count. vitals otherwise stable, O2% wnl. on my exam he appears dry, no respiratory distress, lungs with diminished sounds b/l. irregularly irregular rhythm. abd nttp, pulses intact. HCAP vs asp pna treat with vanc, cefepime, metronidazole, obtain procal and monitor respiratory status. ST to eval for asp risk. palliative consulted for goals of care. pt frequently bounces back to hospital and has poor overall prognosis. hx of covid is the source of positive test, first positive>14days ago, ok to leave off precautions. admit to inpt tele of [facility]>48hrs.
[2020-10-01] MEDS ORDERED: Ondansetron PF 4 MG/2 ML Vial IVP PRN (15:29)
[2020-10-01] MEDS ORDERED: Ondansetron ODT 4 MG TAB PO PRN (15:29)
[2020-10-01] MEDS ORDERED: Diltiazem 125 MG in Sodium Chloride 0.9% 100 ML IVPB SCH (15:45)
[2020-10-01] MEDS ORDERED: Lactated Ringer's 500 ML IV SCH (15:45)
[2020-10-01] MEDS ORDERED: Acetaminophen 325 MG TAB PO SCH (17:00)
[2020-10-01] MEDS ORDERED: Ketorolac Tromethamine 30 MG/ML VIAL IVP PRN ×2 (17:17)
[2020-10-01] MEDS ORDERED: metroNIDAZOLE 500 MG TAB PO SCH (21:00)
[2020-10-01] MEDS: Cefepime 1 GM in Sodium Chloride 0.9% 100 ML IVPB SCH (21:34)
[2020-10-01] MEDS: Acetaminophen 325 MG TAB PO SCH (22:49)
[2020-10-01] MEDS: Digoxin 0.125 MG TAB PO SCH (22:50)
[2020-10-01] MEDS: levETIRAcetam 500 MG TAB PO SCH (22:50)
[2020-10-01] MEDS: Ibuprofen 800 MG TAB PO SCH (22:50)
[2020-10-01] MEDS: Famotidine 20 MG TAB PO SCH (22:50)
[2020-10-01] MEDS: Mirtazapine 15 MG TAB PO SCH (22:51)
[2020-10-01] MEDS: Tamsulosin HCl 0.4 MG CAP PO SCH (22:51)
[2020-10-02] MEDS ORDERED: Acetaminophen 325 MG Suppository PR PRN (00:26)
[2020-10-02] MEDS: Acetaminophen 325 MG TAB PO SCH ×5 (01:14→21:09)
[2020-10-02] MEDS ORDERED: Vancomycin 1 GM in Premix Bag 1 BAG IVPB SCH (02:00)
[2020-10-02] MEDS: Digoxin 0.125 MG TAB PO SCH ×2 (03:16→21:08)
[2020-10-02] MEDS: Ibuprofen 800 MG TAB PO SCH ×5 (03:50→23:15)
--- NOTE | 2020-10-02 07:20 | PDOC.FPRHP ---
- Allergies/Adverse Reactions Allergies Allergy/AdvReac Type Severity Reaction Status Date / Time No Known Drug Allergies Allergy Verified 09/28/20 08:26 - Home Medications Medication Instructions Recorded Confirmed Type Digoxin [Lanoxin] 0.125 mg PO HS 09/25/20 10/01/20 History Famotidine 20 mg PO BID 09/25/20 10/01/20 History Metoprolol Succinate [Toprol XL] 100 mg PO DAILY 09/25/20 10/01/20 History Mirtazapine 7.5 mg PO HS 09/25/20 10/01/20 History Sertraline HCl 100 mg PO DAILY 09/25/20 10/01/20 History Tamsulosin HCl 0.4 mg PO HS 09/25/20 10/01/20 History levETIRAcetam [Keppra] 1,000 mg PO BID 09/25/20 10/01/20 History Acetaminophen [Tylenol Regular 650 mg PO 0300,0900,1500,2100 30 09/28/20 10/01/20 Rx Strength] Days #120 tab Levofloxacin [Levaquin] 750 mg PO 0600 6 Days #6 tab 09/28/20 10/01/20 Rx - History PMHx: PSHx: FHx: Social: - Vital signs BP: [] HR: [] RR: [] Tmax: [] Pox: []% on [] Wt: [] FMR H&P: Results - Labs Result Diagrams: 10/01/20 13:29 10/01/20 13:29 Lab results: WBC 12.6 thou/uL (4.8-10.8) H 10/01/20 13:29 Hgb 9.5 g/dL (14.0-18.0) L 10/01/20 13:29 Hct 30.3 % (42.0-52.0) L 10/01/20 13:29 MCV 87.9 fL (78.0-98.0) 10/01/20 13:29 Plt Count 517 thou/uL (130-400) H 10/01/20 13:29 Neutrophils % 78.7 % (42.0-75.0) H 10/01/20 13:29 Sodium 137 mmol/L (136-145) 10/01/20 13:29 Potassium 4.6 mmol/L (3.5-5.1) 10/01/20 13:29 Chloride 105 mmol/L (98-107) 10/01/20 13:29 Carbon Dioxide 25 mmol/L (23-31) 10/01/20 13:29 BUN 12 mg/dL (8.4-25.7) 10/01/20 13:29 Creatinine 0.72 mg/dL (0.7-1.3) 10/01/20 13:29 Glucose 98 mg/dL (83-110) 10/01/20 13:29 Lactic Acid 1.3 mmol/L (0.5-2.2) 10/01/20 13:29 Calcium 7.9 mg/dL (7.8-10.44) 10/01/20 13:29 Total Bilirubin 0.8 mg/dL (0.2-1.2) 10/01/20 13:29 AST 21 U/L (5-34) 10/01/20 13:29 ALT 16 U/L (8-55) 10/01/20 13:29 Alkaline Phosphatase 135 U/L (40-110) H 10/01/20 13:29 Creatine Kinase 11 U/L (30-200) L 10/01/20 13:29 Serum Total Protein 5.7 g/dL (5.8-8.1) L 10/01/20 13:29 Albumin 2.0 g/dL (3.4-4.8) L 10/01/20 13:29 Urine Ketones Negative mg/dL (Negative) 10/01/20 14:15 Urine Blood Trace (Negative) A 10/01/20 14:15 Urine Nitrite Negative (Negative) 10/01/20 14:15 Ur Leukocyte Esterase Negative Ayad/uL (Negative) 10/01/20 14:15 Urine RBC 4-6 HPF (0-3) A 10/01/20 14:15 Urine WBC 0-3 HPF (0-3) 10/01/20 14:15 Ur Squamous Epith Cells 0-3 HPF (0-3) 10/01/20 14:15 Urine Bacteria None Seen HPF (None Seen) 10/01/20 14:15 FMR H&P: A/P - Plan 75 yo M discharged on 09/28 for HAP Sepsis 2/2 Hospital-acquired pneumonia vs aspiration pneumonia - Discharged home on 12/4 following clinical improvement of HAP on levaquin. Per , patient has been receiving antibiotics. - Tachycardic, tachypneic in ED, Tmax 103 at home. Received vanc and zosyn in ED. - WBC 12.6 (9.2 on discharge on 09/28) - Procal 0.29 - CXR: left lobe infiltrate - Speech eval pending, patient currently NPO - Continue vanc, start cefepime - BCx, UCx, and sputum culture pending - UA neg - 500mL bolus of LR Afib w/ RVR - Known history of Afib - Received 10mg of dilt in ED - Start dilt drip, titrate as tolerated - Continue home digoxin and metoprolol when patient is cleared for PO intake Hx of COVID pneumonia - Hospitalized in Jul. First positive test 08/10 - Does not need precautions Chronic L1 compression fracture - Repeat imaging on last hospitalization showed fracture was stabled - Scheduled tylenol and ibuprofen Dementia - reports patient has become more agitated and has displayed personality changes since his admission for COVID. Discussed palliative care during last hospitalization and explained she was not ready. - Palliative Consult to discuss GOC - PT/OT consult - CM consult for placement after discharge Hx of Hemorrhagic CVAx3 Epilepsy - Continue keppra Anxiety/ Depression - Continue mirtazapine and sertraline BPH - Continue tamsulosin DVT PPx: SCDs GI PPx: famotidine PCP: CORDELIA Dispo: Admit to tele. Will treat presumed pneumonia, evaluate for aspiration and continue palliative care discussions with . FMR H&P: Upper Level - Plan Date/Time: 10/02/20 0720 I, [], have evaluated this patient and agree with findings/plan as outlined by agribusiness internship resident. Pertinent changes/additions are listed here.
[2020-10-02] MEDS ORDERED: FLU VACC QS2020-21(65YR UP)/PF 240 MCG/0.7 ML SYRINGE IM ONE (08:15)
[2020-10-02 08:58] LABS: #Basophils 0.1 thou/uL (0.0-0.2); #Eosinphils 0.2 thou/uL (0.0-0.7); #Lymphocytes 1.8 thou/uL (1.20-3.40); #Monocytes 1.3 thou/uL (0.11-0.59); #Neutrophils 11.1 thou/uL (1.40-6.50); %Basophils 0.3 % (0.0-1.0); %Eosinophils 1.2 % (0.0-10.0); %Lymphocytes 12.5 % (21.0-51.0); %Monocytes 8.9 % (0.0-10.0); Hemoglobin 9.4 g/dL (14.0-18.0); Mean Corpuscular HGB CONC 31.7 g/dL (32.0-36.0); Mean Corpuscular Hemoglobin 27.7 pg (27.0-31.0); Mean Corpuscular Volume 87.3 fL (78.0-98.0); Mean Platelet Volume 6.4 fL (7.4-10.4); Platelet Count 492 thou/uL (130-400); RBC Distribution Width 14.1 % (11.5-14.5); Red Blood Cell (RBC) Count 3.38 mill/uL (4.70-6.10); White Blood Cell (WBC) Count 14.5 thou/uL (4.8-10.8)
--- NOTE | 2020-10-02 09:07 | PDOC.FM ---
- Subjective Subjective: Mr. Sherwood was resting comfortably this AM. - Objective Vital Signs & Weight: Vital Signs (12 hours) Temp Pulse Resp BP Pulse Ox 10/02/20 08:06 94 L 10/02/20 03:55 99.7 F H 133 H 20 111/56 L 94 L 10/02/20 03:34 111 H 109/61 10/02/20 03:16 126 H 10/02/20 02:00 124 H 103/57 L 10/02/20 01:44 99.3 F 10/02/20 01:14 101.5 F H 10/01/20 23:40 101.5 F H 10/01/20 23:34 101.5 F H 10/01/20 23:32 110 H 141/66 H 10/01/20 22:45 98 136/64 Weight Weight 67.041 kg I&O: 10/01/20 10/02/20 10/03/20 06:59 06:59 06:59 Intake Total 150 Balance 150 Result Diagrams: 10/02/20 08:39 10/02/20 08:39 EKG Reviewed by me: Yes (tele: Afib 100-110s) Phys Exam - Physical Examination Constitutional: NAD dry mucous membranes Neck: no JVD Respiratory: no wheezing, clear to auscultation bilateral Cardiovascular: RRR, no significant murmur Gastrointestinal: soft, non-tender Musculoskeletal: no edema, pulses present Neurological: normal sensation Skin: no rash Dx/Plan - Plan Plan: 75 yo M discharged on 09/28 for HAP Sepsis 2/2 Hospital-acquired pneumonia vs aspiration pneumonia/pneumonitis - Discharged home on 09/28 following clinical improvement of HAP on levaquin. Per , patient has been receiving antibiotics. - Tachycardic, tachypneic in ED, Tmax 103 at home. Received vanc and zosyn in ED. - Febrile last night, responded to tylenol - WBC 12.6, 14.5 - Procal 0.29 - CXR: left lobe infiltrate - Speech eval pending, patient currently NPO - Continue vanc, start cefepime - BCx, UCx, and sputum culture pending - UA neg - Order 500mL bolus of LR this AM because patient appears volume down - Start IV metronidazole this AM for anaerobe coverage for suspected aspiration pneumonitis Afib w/ RVR - Known history of Afib - Received 10mg of dilt in ED - On dilt drip at 10mL/hr this AM. HR 55. Communicated with nursing to titrate and turn off dilt drip. - Continue home digoxin and metoprolol when patient is cleared for PO intake Hx of COVID pneumonia - Hospitalized in Jul. First positive test 08/10 - Does not need precautions Chronic L1 compression fracture - Repeat imaging on last hospitalization showed fracture was stabled - Scheduled tylenol and ibuprofen Dementia - reports patient has become more agitated and has displayed personality changes since his admission for COVID. Discussed palliative care during last hospitalization and explained she was not ready. - Palliative Consult to discuss GOC - PT/OT consult - CM consult for placement after discharge Hx of Hemorrhagic CVAx3 Epilepsy - Continue keppra Anxiety/ Depression - Continue mirtazapine and sertraline BPH - Continue tamsulosin DVT PPx: SCDs GI PPx: famotidine PCP: CORDELIA Dispo: Continue treatment of suspected aspiration pneumonitis. Speech consult placed, awaiting eval. Touch base with Palliative regarding discussions with . Addendum - Attending - Attending Attestation Date/Time: 10/02/20 1116 I personally evaluated the patient and discussed the management with Dr. Castillo. I agree with the History, Examination, Assessment and Plan documented above with any addition or exceptions noted below. Patient here after fever at home in setting of known treatment for HAP. He is also s/p COVID infection that resulted in prolonged hospitalization. We will continue his Levaquin that he was on outpatient as objectively it seems to be clearing his pneumonia well. Continue O2 support as needed. Wean Dilt drip as tolerated, he is back on PO beta renée for rate control. Trend PCT and monitor fever curve.
[2020-10-02 09:15] LABS: Anion Gap 15 mmol/L (10-20); BUN (Urea Nitrogen) 14 mg/dL (8.4-25.7); Calc. Creatinine Clearance 78 mL/min (70-130); Carbon Dioxide 22 mmol/L (23-31); Chloride 105 mmol/L (98-107); Glucose 102 mg/dL (83-110); Potassium 4.2 mmol/L (3.5-5.1); Sodium 138 mmol/L (136-145)
[2020-10-02] MEDS ORDERED: Lactated Ringer's 500 ML IV SCH (09:15)
[2020-10-02] MEDS: Famotidine 20 MG TAB PO SCH ×2 (10:18→21:08)
[2020-10-02] MEDS: levETIRAcetam 500 MG TAB PO SCH ×2 (10:19→21:08)
[2020-10-02] MEDS: Cefepime 1 GM in Sodium Chloride 0.9% 100 ML IVPB SCH (10:20)
[2020-10-02] MEDS: metroNIDAZOLE 500 MG in Premix Bag 1 BAG IVPB SCH ×2 (11:09→18:22)
--- NOTE | 2020-10-02 14:43 | PDOC.PALCO ---
Palliative Care Consult - Consult Details Requesting Physician: Dr Castillo Reason for Consult: goals of care, advance directives assistance, complex decision-making - Pertinent HPI Mr Sherwood was discharged to the private home setting 09/28/2020 with home health services. He was discharged home with abx/levaquin. Complained of back pain. Onset of fever up to 103. He was sent to the emergency room for further evaluation and noted to have tachycardia, tachypnea in Afib with RVR. Abx initiated and was admitted for further medical management and evaluation. has stated that he has significant personality change since July when he was admitted for management of Covid Pneumonia. She has relayed that he as increase in agitation. Lives independently with , ambulates with a walker. Home health services through [facility] - Pertinent PMH Afib, Hemorrhagic, CVA x 3, epilepsy, anxiety, L1 Compression fx - Social History Smoking Status: Never smoker Smoking: no tobacco exposure Alcohol Use: none Drug Use History: none Living Situation: independent, - Medications MAR Reviewed: Yes - Allergies Allergies/Adverse Reactions: Allergies Allergy/AdvReac Type Severity Reaction Status Date / Time No Known Drug Allergies Allergy Verified 09/28/20 08:26 - ROS Non Response: due to mental status - Objective Vital Signs: Vital Signs - Most Recent Temp Pulse Resp BP Pulse Ox 97.6 F 94 17 94/51 L 93 L 10/02/20 11:33 10/02/20 11:33 10/02/20 11:33 10/02/20 11:33 10/02/20 11:33 Palliative Performance Scale: 30 - Physical Exam Constitutional: confusion, ill appearing HEENT: EOMI, moist MMs, sclera anicteric Deviation from normal: Dry mucous membranes Respiratory: no wheezing, diminished lung sound Cardiovascular: RRR Gastrointestinal: non-tender Musculoskeletal: diffuse muscle atrophy Neurology: moves all 4 limbs, no focal deficits Skin: cap refill <2 seconds, fragile Deviation from normal: Lethargic - Problem List (1) Sepsis Code(s): A41.9 - SEPSIS, UNSPECIFIED ORGANISM Status: Acute (2) Afib Code(s): I48.91 - UNSPECIFIED ATRIAL FIBRILLATION Status: Acute (3) Palliative care encounter Code(s): Z51.5 - ENCOUNTER FOR PALLIATIVE CARE Status: Acute (4) Declining functional status Code(s): R53.81 - OTHER MALAISE Status: Acute (5) History of 2019 novel coronavirus disease (COVID-19) Code(s): Z86.19 - PERSONAL HISTORY OF OTHER INFECTIOUS AND PARASITIC DISEASES Status: Acute (6) Dementia Code(s): F03.90 - UNSPECIFIED DEMENTIA WITHOUT BEHAVIORAL DISTURBANCE Status: Acute - Plan/Recommendations Plan: Patient assessed, records reviewed. Communicated with [facility]. Attempted to contact Mrs Sherwood at [phone] and [phone] with no answer. Message left requesting return phone call. Will attempt to revisit disease trajectory paired with directives Mr Sherwood completed and revisit Goal of Care. Communicated with residents and primary RN [50] minutes spent on this encounter with >50% of the time in counseling and coordination of care. Thank you for this very appropriate consult.
[2020-10-02] MEDS: Tamsulosin HCl 0.4 MG CAP PO SCH (21:08)
[2020-10-02] MEDS: Mirtazapine 15 MG TAB PO SCH (21:08)
[2020-10-03] MEDS: metroNIDAZOLE 500 MG in Premix Bag 1 BAG IVPB SCH ×2 (01:13→08:48)
[2020-10-03] MEDS: Ibuprofen 800 MG TAB PO SCH ×3 (06:13→17:30)
[2020-10-03] MEDS: Acetaminophen 325 MG TAB PO SCH ×3 (06:13→17:30)
[2020-10-03 07:28] LABS: #Eosinphils 0.3 thou/uL (0.0-0.7); #Lymphocytes 2.2 thou/uL (1.20-3.40); #Monocytes 1.3 thou/uL (0.11-0.59); %Basophils 0.3 % (0.0-1.0); %Lymphocytes 14.7 % (21.0-51.0); Mean Corpuscular HGB CONC 31.1 g/dL (32.0-36.0); Mean Corpuscular Hemoglobin 27.3 pg (27.0-31.0); Mean Corpuscular Volume 87.8 fL (78.0-98.0); Mean Platelet Volume 6.3 fL (7.4-10.4); Platelet Count 543 thou/uL (130-400); RBC Distribution Width 14.4 % (11.5-14.5); Red Blood Cell (RBC) Count 3.64 mill/uL (4.70-6.10); White Blood Cell (WBC) Count 14.9 thou/uL (4.8-10.8)
--- NOTE | 2020-10-03 07:32 | PDOC.FM ---
- Subjective Subjective: Mr. Sherwood reports back pain this morning, that is worse when he coughs or sneezes. He says he needs to have a bowel movement. - Objective Vital Signs & Weight: Vital Signs (12 hours) Temp Pulse Resp BP Pulse Ox 10/03/20 03:43 98.8 F 101 H 18 118/86 95 10/03/20 00:05 96 10/02/20 23:44 98.7 F 124 H 104/58 L 10/02/20 21:08 118 H 10/02/20 20:00 99.6 F 110 H 16 120/66 96 Weight Weight 67.041 kg I&O: 10/02/20 10/03/20 10/04/20 06:59 06:59 06:59 Intake Total 990 Balance 990 Result Diagrams: 10/03/20 07:22 10/03/20 07:22 EKG Reviewed by me: Yes (tele: Afib 90s) Phys Exam - Physical Examination Constitutional: NAD HEENT: moist MMs, sclera anicteric Neck: no JVD, full ROM Respiratory: clear to auscultation bilateral coarse breath sounds Cardiovascular: RRR, no significant murmur Gastrointestinal: soft, non-tender Musculoskeletal: no edema, pulses present Neurological: non-focal Skin: no rash Dx/Plan - Plan Plan: 75 yo M discharged on 09/28 for HAP Sepsis 2/2 Hospital-acquired pneumonia vs aspiration pneumonia/pneumonitis - Discharged home on 09/28 following clinical improvement of HAP on levaquin. Per , patient has been receiving antibiotics. - Tachycardic, tachypneic in ED, Tmax 103 at home. Received vanc and zosyn in ED. - WBC 12.6, 14.5, 14.9 - Procal 0.29, 0.24 - CXR: left lobe infiltrate - Speech eval: chopped - Discontinued vanc and cefepime yesterday. Switched patient back to levaquin because decreasing procal shows evidence of adequate treatment. Continue flagyl. - sputum culture pending - UA neg. UCx and BCx no growth to date. Afib w/ RVR - Known history of Afib - Received 10mg of dilt in ED. Dilt drip discontinued at 13:22 on 10/02 - Patient HR increased to 100-110s for approximately 1 hour yesterday afternoon. Gave patient an addition 100mg of metoprolol. Will increase patient's metoprolol dose to 200mg this AM. - Continue home digoxin Hx of COVID pneumonia - Hospitalized in Jul. First positive test 08/10 - Does not need precautions Chronic L1 compression fracture - Repeat imaging on last hospitalization showed fracture was stabled - Scheduled tylenol and ibuprofen - Patient has increased pain when he coughs or sneezes but otherwise his pain seems well controlled. Dementia - reports patient has become more agitated and has displayed personality changes since his admission for COVID. Discussed palliative care during last hospitalization and explained she was not ready. - Palliative Consult to discuss GOC. Tried to contact yesterday. - PT/OT consult - CM consult for placement after discharge Hx of Hemorrhagic CVAx3 Epilepsy - Continue keppra Anxiety/ Depression - Continue mirtazapine and sertraline BPH - Continue tamsulosin DVT PPx: SCDs GI PPx: famotidine PCP: CORDELIA Dispo: Patient's WBC remains elevated though he looks better on physical exam. Continue levaquin and flagyl. Continue working with Palliative to discuss GOC with patient's . Addendum - Attending - Attending Attestation Date/Time: 10/03/20 [id number] I personally evaluated the patient and discussed the management with Dr. Castillo. I agree with the History, Examination, Assessment and Plan documented above with any addition or exceptions noted below. Patient overall improved this morning. Continue Levaqin and Flagyl to complete course for his previous HAP. Labs reassuring, afebrile >24 hours. We are still having difficulty with HR control, escalating beta renée therapy today.
[2020-10-03 07:48] LABS: Anion Gap 12 mmol/L (10-20); BUN (Urea Nitrogen) 12 mg/dL (8.4-25.7); Calc. Creatinine Clearance 85 mL/min (70-130); Calcium 8.3 mg/dL (7.8-10.44); Carbon Dioxide 24 mmol/L (23-31); Chloride 103 mmol/L (98-107); Glucose 99 mg/dL (83-110); Sodium 135 mmol/L (136-145)
[2020-10-03] MEDS: Famotidine 20 MG TAB PO SCH ×2 (08:48→22:53)
[2020-10-03] MEDS: levETIRAcetam 500 MG TAB PO SCH ×2 (08:48→22:54)
[2020-10-03] MEDS: metroNIDAZOLE 500 MG TAB PO SCH ×2 (14:15→22:54)
[2020-10-03] MEDS ORDERED: Sodium Chloride 0.9% 500 ML IV SCH (22:30)
[2020-10-03] MEDS: Digoxin 0.125 MG TAB PO SCH (22:53)
[2020-10-03] MEDS: Mirtazapine 15 MG TAB PO SCH (22:54)
[2020-10-03] MEDS: Tamsulosin HCl 0.4 MG CAP PO SCH (22:54)
[2020-10-04] MEDS: Acetaminophen 325 MG TAB PO SCH ×5 (02:17→23:04)
[2020-10-04] MEDS: Ibuprofen 800 MG TAB PO SCH ×5 (02:18→23:04)
--- NOTE | 2020-10-04 07:02 | PDOC.FM ---
- Subjective Subjective: Mr. Sherwood was resting comfortably this AM. He denied any problems and said he was feeling "okay." - Objective Vital Signs & Weight: Vital Signs (12 hours) Temp Pulse Resp BP Pulse Ox 10/04/20 03:40 97.6 F 94 18 103/60 94 L 10/04/20 00:55 99/57 L 10/03/20 23:51 85/51 L 10/03/20 22:53 98 10/03/20 20:00 97.3 F L 98 16 80/51 L 93 L Weight Admit Weight 67.041 kg Weight 67.041 kg I&O: 10/03/20 10/04/20 10/05/20 06:59 06:59 06:59 Intake Total 990 440 Balance 990 440 Result Diagrams: 10/03/20 07:22 10/03/20 07:22 EKG Reviewed by me: Yes (tele: Afib 80-90s) Phys Exam - Physical Examination Constitutional: NAD dry mucous membranes Neck: no JVD Respiratory: no wheezing, clear to auscultation bilateral Cardiovascular: RRR, no significant murmur Gastrointestinal: soft, non-tender Musculoskeletal: no edema, pulses present Neurological: non-focal Skin: no rash Dx/Plan - Plan Plan: 75 yo M discharged on 09/28 for HAP Sepsis 2/2 Hospital-acquired pneumonia vs aspiration pneumonia/pneumonitis - Discharged home on 09/28 following clinical improvement of HAP on levaquin. Per , patient has been receiving antibiotics. - Tachycardic, tachypneic in ED, Tmax 103 at home. Received vanc and zosyn in ED. - WBC 12.6, 14.5, 14.9 - Procal 0.29, 0.24 - CXR: left lobe infiltrate - Speech eval: chopped diet - Continue levaquin (10/02) and flagyl (10/01) - sputum culture pending - UA neg. UCx and BCx no growth to date. Afib w/ RVR - Known history of Afib - Received 10mg of dilt in ED. Dilt drip discontinued at 13:22 on 10/02 - Increased patient's metoprolol to 200mg yesterday but patient refused additional dose. Patient was hypotensive last night and received a 500mL bolus. Patient's BP 100/56 this AM and HR was 120s. Will give patient the increased dose of metoprolol today and watch his BP. Consider another fluid bolus. Patient eats 1/4 - 1/2 of his meals. - Continue home digoxin Hx of COVID pneumonia - Hospitalized in Jul. First positive test 08/10 - Does not need precautions Chronic L1 compression fracture - Repeat imaging on last hospitalization showed fracture was stabled - Scheduled tylenol and ibuprofen - Patient has increased pain when he coughs or sneezes but otherwise his pain seems well controlled. Dementia - reports patient has become more agitated and has displayed personality changes since his admission for COVID. Discussed palliative care during last hospitalization and explained she was not ready. - Palliative Consult to discuss GOC. Tried to contact yesterday. - PT/OT consult - CM consult for placement after discharge Hx of Hemorrhagic CVAx3 Epilepsy - Continue keppra Anxiety/ Depression - Continue mirtazapine and sertraline BPH - Continue tamsulosin DVT PPx: SCDs GI PPx: famotidine PCP: CORDELIA Dispo: Patient's WBC is not back this AM. He remains afebrile. Will continue to monitor HR and BP. Continue levaquin and flagyl. Continue discussion with regarding goals of care. Addendum - Attending - Attending Attestation Date/Time: 10/04/20 1033 I personally evaluated the patient and discussed the management with Dr. Castillo. I agree with the History, Examination, Assessment and Plan documented above with any addition or exceptions noted below. Patient has reverted back to Afib RVR given his medication noncompliance overnight. He reports feeling worse today, which is understandable. Hopefully he will take his medication today. Palliative care continues to discuss goals of care with family given the patient voices that he has essentially given up on life at this point. Afebrile, continue Levaquin.
[2020-10-04] MEDS: levETIRAcetam 500 MG TAB PO SCH (08:48)
[2020-10-04] MEDS: metroNIDAZOLE 500 MG TAB PO SCH ×2 (08:49→16:55)
[2020-10-04] MEDS: Famotidine 20 MG TAB PO SCH ×2 (08:49→23:04)
[2020-10-04 13:36] LABS: #Eosinphils 0.3 thou/uL (0.0-0.7); #Lymphocytes 1.3 thou/uL (1.20-3.40); #Monocytes 0.9 thou/uL (0.11-0.59); #Neutrophils 10.1 thou/uL (1.40-6.50); %Basophils 0.1 % (0.0-1.0); %Eosinophils 2.1 % (0.0-10.0); %Lymphocytes 10.3 % (21.0-51.0); %Monocytes 6.8 % (0.0-10.0); %Neutrophils 80.6 % (42.0-75.0); Hemoglobin 8.8 g/dL (14.0-18.0); Mean Corpuscular HGB CONC 31.5 g/dL (32.0-36.0); Mean Corpuscular Hemoglobin 26.8 pg (27.0-31.0); Mean Corpuscular Volume 85.2 fL (78.0-98.0); Mean Platelet Volume 6.5 fL (7.4-10.4); Platelet Count 478 thou/uL (130-400); RBC Distribution Width 14.2 % (11.5-14.5); Red Blood Cell (RBC) Count 3.27 mill/uL (4.70-6.10); White Blood Cell (WBC) Count 12.6 thou/uL (4.8-10.8)
[2020-10-04 14:01] LABS: Anion Gap 15 mmol/L (10-20); BUN (Urea Nitrogen) 18 mg/dL (8.4-25.7); Calc. Creatinine Clearance 80 mL/min (70-130); Carbon Dioxide 21 mmol/L (23-31); Chloride 106 mmol/L (98-107); Glucose 99 mg/dL (83-110); Potassium 3.6 mmol/L (3.5-5.1); Sodium 138 mmol/L (136-145)
[2020-10-04] MEDS ORDERED: Lactated Ringer's 500 ML IV SCH ×3 (15:30→18:00)
[2020-10-04] MEDS: Tamsulosin HCl 0.4 MG CAP PO SCH (23:04)
[2020-10-04] MEDS: Mirtazapine 15 MG TAB PO SCH (23:04)
[2020-10-04] MEDS: Digoxin 0.125 MG TAB PO SCH (23:04)
[2020-10-04] MEDS: levETIRAcetam in NS 1,000 MG in Premix Bag 1 BAG IVPB SCH (23:09)
[2020-10-04] MEDS: metroNIDAZOLE 500 MG in Premix Bag 1 BAG IVPB SCH (23:19)
--- NOTE | 2020-10-05 06:59 | PDOC.FM ---
- Subjective Subjective: Mr. Sherwood was resting comfortably in bed. He says his back is hurting and he is not feeling well. - Objective Vital Signs & Weight: Vital Signs (12 hours) Temp Pulse Resp BP Pulse Ox 10/05/20 04:00 98.2 F 125 H 18 123/72 95 10/05/20 00:46 96 10/05/20 00:00 69 113/58 L 10/04/20 23:04 90 10/04/20 20:24 98.2 F 90 14 90/58 L 93 L 10/04/20 20:00 93 L Weight Admit Weight 67.041 kg Weight 67.041 kg I&O: 10/03/20 10/04/20 10/05/20 06:59 06:59 06:59 Intake Total 339 396 6357 Balance 241 802 6470 Result Diagrams: 10/05/20 07:19 10/05/20 07:19 EKG Reviewed by me: Yes (tele: Afib, average HR 100s) Phys Exam - Physical Examination Constitutional: NAD HEENT: moist MMs Neck: no JVD Respiratory: no wheezing, clear to auscultation bilateral Cardiovascular: RRR, no significant murmur Gastrointestinal: soft, non-tender Musculoskeletal: no edema, pulses present Neurological: non-focal Skin: no rash Dx/Plan - Plan Plan: 75 yo M discharged on 09/28 for HAP Sepsis 2/2 Hospital-acquired pneumonia vs aspiration pneumonia/pneumonitis - Discharged home on 09/28 following clinical improvement of HAP on levaquin. Per , patient has been receiving antibiotics. - Tachycardic, tachypneic in ED, Tmax 103 at home. Received vanc and zosyn in ED. - WBC 12.6, 14.5, 14.9, 12.6, 13.3 - Procal 0.29, 0.24 - CXR: left lobe infiltrate - Speech eval: aspirating, barium swallow study pending - Continue levaquin (10/02) and flagyl (10/01) - sputum culture pending - UA neg. UCx and BCx no growth to date. Afib w/ RVR - Known history of Afib - Received 10mg of dilt in ED. Dilt drip discontinued at 13:22 on 10/02 - Metoprolol 200mg - Patient is refusing night time medications. Will switch digoxin to AM. - Continue home digoxin Hx of COVID pneumonia - Hospitalized in Oct. First positive test 08/10 - Does not need precautions Chronic L1 compression fracture - Repeat imaging on last hospitalization showed fracture was stabled - Scheduled tylenol and ibuprofen - Patient has increased pain when he coughs or sneezes but otherwise his pain seems well controlled. Dementia - reports patient has become more agitated and has displayed personality changes since his admission for COVID. Discussed palliative care during last hospitalization and explained she was not ready. - Palliative Consult to discuss GOC. Tried to contact yesterday. - PT/OT consult - CM consult for placement after discharge Hx of Hemorrhagic CVAx3 Epilepsy - Continue keppra Anxiety/ Depression - Continue mirtazapine and sertraline BPH - Continue tamsulosin DVT PPx: SCDs GI PPx: famotidine PCP: CORDELIA Dispo: Barium swallow study pending to evaluate aspiration. Continue GOC dis cussion with . Feel patient would be safer going to rehab or snf following discharge. Addendum - Attending - Attending Attestation Date/Time: 10/05/20 1043 I personally evaluated the patient and discussed the management with Dr. Castillo. I agree with the History, Examination, Assessment and Plan documented above with any addition or exceptions noted below. Patient the same per him. Having issues with HR control and it has been inconsistent due to inconsistent admin of his medications. Hoping that his home Dig and Metoprolol today will get it better controlled. NPO pending further speech evals. Patient continues to indicate he is ready to , will discuss with PC about hospice as this seems to be his preference but his is not on board with his wishes.
[2020-10-05] MEDS: Ibuprofen 800 MG TAB PO SCH ×4 (07:22→23:38)
[2020-10-05] MEDS: Acetaminophen 325 MG TAB PO SCH ×4 (07:22→23:38)
[2020-10-05 07:36] LABS: #Basophils 0.1 thou/uL (0.0-0.2); #Eosinphils 0.2 thou/uL (0.0-0.7); #Lymphocytes 1.8 thou/uL (1.20-3.40); #Monocytes 1.3 thou/uL (0.11-0.59); #Neutrophils 9.9 thou/uL (1.40-6.50); %Basophils 0.4 % (0.0-1.0); %Eosinophils 1.8 % (0.0-10.0); %Lymphocytes 13.3 % (21.0-51.0); %Monocytes 9.8 % (0.0-10.0); %Neutrophils 74.7 % (42.0-75.0); Hemoglobin 10.1 g/dL (14.0-18.0); Mean Corpuscular HGB CONC 32.1 g/dL (32.0-36.0); Mean Corpuscular Hemoglobin 28.2 pg (27.0-31.0); Mean Corpuscular Volume 87.9 fL (78.0-98.0); Mean Platelet Volume 6.7 fL (7.4-10.4); Platelet Count 502 thou/uL (130-400); RBC Distribution Width 14.8 % (11.5-14.5); Red Blood Cell (RBC) Count 3.59 mill/uL (4.70-6.10); White Blood Cell (WBC) Count 13.3 thou/uL (4.8-10.8)
[2020-10-05 08:01] LABS: Anion Gap 20 mmol/L (10-20); BUN (Urea Nitrogen) 15 mg/dL (8.4-25.7); Calc. Creatinine Clearance 81 mL/min (70-130); Calcium 7.9 mg/dL (7.8-10.44); Carbon Dioxide 14 mmol/L (23-31); Chloride 108 mmol/L (98-107); Glucose 83 mg/dL (83-110); Potassium 3.7 mmol/L (3.5-5.1); Sodium 138 mmol/L (136-145)
[2020-10-05] MEDS: metroNIDAZOLE 500 MG in Premix Bag 1 BAG IVPB SCH ×3 (08:46→23:38)
[2020-10-05] MEDS ORDERED: Digoxin 0.5 MG/2 ML AMP SLOW IVP SCH (09:15)
[2020-10-05] MEDS: Famotidine 20 MG TAB PO SCH ×2 (09:30→20:03)
[2020-10-05] MEDS: levETIRAcetam in NS 1,000 MG in Premix Bag 1 BAG IVPB SCH (10:16)
[2020-10-05] MEDS ORDERED: Lactated Ringer's 1,000 ML IV SCH (13:45)
--- NOTE | 2020-10-05 15:33 | RAD ---
EXAM: XR Ba Swallow W/Speech Therap PROVIDED CLINICAL HISTORY: Dysphagia, oral pharyngeal phase. Feeding difficulties. History of prior strokes. COMPARISON: None FINDINGS: This examination was performed in conjunction with speech pathology. Varying consistencies of barium were administered during the exam. Patient does demonstrate mild difficulty in formation of bolus into the posterior pharynx. A few episodes of premature spill of contrast into the vallecula were pre sent prior to initiation of the swallowing mechanism. There is persistent residue within the vallecula and piriform sinuses. No aspiration or penetration was noted during the exam. Fluoroscopy: Time-1.5 minutes Dose-0.934 Gy centimeter squared IMPRESSION: No evidence of aspiration.
[2020-10-05] MEDS: Mirtazapine 15 MG TAB PO SCH (20:03)
[2020-10-05] MEDS: levETIRAcetam 500 MG TAB PO SCH (20:04)
[2020-10-05] MEDS: Tamsulosin HCl 0.4 MG CAP PO SCH (20:04)
[2020-10-06] MEDS: Acetaminophen 325 MG TAB PO SCH ×3 (05:26→17:58)
[2020-10-06] MEDS: Ibuprofen 800 MG TAB PO SCH ×3 (05:26→17:59)
--- NOTE | 2020-10-06 06:28 | PDOC.FM ---
- Subjective Subjective: Resting comfortably and sleeping. Did not wake patient this morning as he is often agitated. - Objective Vital Signs & Weight: Vital Signs (12 hours) Temp Pulse Resp BP Pulse Ox 10/06/20 04:00 97.9 F 96 14 94/56 L 92 L 10/06/20 02:44 92 L 10/05/20 23:25 92 L 10/05/20 23:20 97.5 F L 81 20 92/56 L 89 L 10/05/20 19:30 97.8 F 68 20 95/54 L 92 L Weight Admit Weight 67.041 kg Weight 64.818 kg I&O: 10/04/20 10/05/20 10/06/20 06:59 06:59 06:59 Intake Total 440 1350 1420 Balance 440 1350 1420 Result Diagrams: 10/06/20 07:47 10/06/20 07:47 EKG Reviewed by me: Yes (tele: Afib 80-90s) Radiology Reviewed by me: Yes Radiology: Barium swallow study: no aspiration Phys Exam - Physical Examination Constitutional: NAD HEENT: moist MMs, sclera anicteric Neck: no JVD Respiratory: no wheezing, clear to auscultation bilateral Cardiovascular: RRR, no significant murmur Gastrointestinal: soft, non-tender Musculoskeletal: no edema, pulses present Neurological: non-focal Skin: no rash Dx/Plan - Plan Plan: 75 yo M discharged on 09/28 for HAP Sepsis 2/2 Hospital-acquired pneumonia vs aspiration pneumonia/pneumonitis - Discharged home on 09/28 following clinical improvement of HAP on levaquin. Per , patient has been receiving antibiotics. - Tachycardic, tachypneic in ED, Tmax 103 at home. Received vanc and zosyn in ED. - WBC 12.6, 14.5, 14.9, 12.6, 13.3, 11.7 - Procal 0.29, 0.24, 0.13 - CXR: left lobe infiltrate - Speech was suspicious for aspiration. Performed barium swallow study which showed no signs of aspiration. Approved patient for ground diet. - levaquin (10/02) and flagyl (10/01) - sputum culture pending - UA neg. UCx and BCx no growth to date - Based on procal and WBC this AM, will discontinue antibiotics tomorrow. Will continue discussion with , Estelle, on possible rehab or snf placement. Afib w/ RVR - Known history of Afib. Received 10mg of dilt in ED. Dilt drip discontinued at 13:22 on 10/02 - Metoprolol 200mg daily. Digoxin daily. - Patient's rate control was improved since yesterday. HR 80-90s Hx of COVID pneumonia - Hospitalized in Jul. First positive test 08/10 - Does not need precautions Chronic L1 compression fracture - Repeat imaging on last hospitalization showed fracture was stabled - Scheduled tylenol and ibuprofen - Patient has increased pain when he coughs or sneezes but otherwise his pain seems well controlled. Dementia - reports patient has become more agitated and has displayed personality changes since his admission for COVID. Discussed palliative care during last hospitalization and explained she was not ready. - Palliative Consult to discuss GOC. Tried to contact yesterday. - PT/OT consult - CM consult for placement after discharge: spoke with who is unsure if she would like patient to go somewhere. Will continue to follow. Hx of Hemorrhagic CVAx3 Epilepsy - Continue keppra Anxiety/ Depression - Continue mirtazapine and sertraline BPH - Continue tamsulosin DVT PPx: SCDs GI PPx: famotidine PCP: CORDELIA Dispo: Barium swallow study showed no aspiration. Discontinue antibiotics tomorrow. Continue GOC discussion with . Feel patient would be safer going to rehab or snf following discharge. Addendum - Attending - Attending Attestation Date/Time: 10/06/20 5238 I personally evaluated the patient and discussed the management with Dr. Castillo. I agree with the History, Examination, Assessment and Plan documented above with any addition or exceptions noted below. Patient resting comfortably. Continue treatment per outpatient regimen for his non-acute pneumonia. Continue PO meds for his Afib. It appears now that he has been receiving both the Metoprolol 200mg and the Digoxin that his HR is better controlled. Continue for now, and continue to work with PC and family regarding goals of care.
[2020-10-06 08:26] LABS: #Eosinphils 0.3 thou/uL (0.0-0.7); #Lymphocytes 1.4 thou/uL (1.20-3.40); #Neutrophils 9.1 thou/uL (1.40-6.50); %Basophils 0.3 % (0.0-1.0); %Eosinophils 2.1 % (0.0-10.0); %Lymphocytes 11.9 % (21.0-51.0); %Monocytes 8.4 % (0.0-10.0); %Neutrophils 77.3 % (42.0-75.0); Hemoglobin 9.3 g/dL (14.0-18.0); Mean Corpuscular HGB CONC 32.7 g/dL (32.0-36.0); Mean Corpuscular Hemoglobin 28.2 pg (27.0-31.0); Mean Corpuscular Volume 86.3 fL (78.0-98.0); Mean Platelet Volume 6.6 fL (7.4-10.4); Platelet Count 486 thou/uL (130-400); RBC Distribution Width 14.6 % (11.5-14.5); Red Blood Cell (RBC) Count 3.29 mill/uL (4.70-6.10); White Blood Cell (WBC) Count 11.7 thou/uL (4.8-10.8)
[2020-10-06 08:31] LABS: Anion Gap 14 mmol/L (10-20); BUN (Urea Nitrogen) 16 mg/dL (8.4-25.7); Calc. Creatinine Clearance 70 mL/min (70-130); Carbon Dioxide 21 mmol/L (23-31); Chloride 108 mmol/L (98-107); Glucose 95 mg/dL (83-110); Potassium 3.3 mmol/L (3.5-5.1); Sodium 140 mmol/L (136-145)
[2020-10-06] MEDS ORDERED: Potassium Chloride 20 MEQ TAB PO SCH (08:45)
[2020-10-06] MEDS: metroNIDAZOLE 500 MG in Premix Bag 1 BAG IVPB SCH ×2 (10:08→16:06)
[2020-10-06] MEDS: Famotidine 20 MG TAB PO SCH ×2 (10:12→20:54)
[2020-10-06] MEDS: levETIRAcetam 500 MG TAB PO SCH (10:14)
[2020-10-06] MEDS: Digoxin 0.125 MG TAB PO SCH ×2 (10:14→12:15)
[2020-10-06] MEDS ORDERED: levETIRAcetam 500 mg/5 ml Oral Solution PO SCH (10:15)
[2020-10-06] MEDS: levETIRAcetam 500 mg/5 ml Oral Solution PO SCH (20:53)
[2020-10-06] MEDS: Tamsulosin HCl 0.4 MG CAP PO SCH (20:54)
[2020-10-06] MEDS: Mirtazapine 15 MG TAB PO SCH (20:54)
[2020-10-07] MEDS: Ibuprofen 800 MG TAB PO SCH ×4 (00:20→19:19)
[2020-10-07] MEDS: Acetaminophen 325 MG TAB PO SCH ×4 (00:22→19:18)
[2020-10-07] MEDS: metroNIDAZOLE 500 MG in Premix Bag 1 BAG IVPB SCH ×2 (00:24→09:38)
--- NOTE | 2020-10-07 06:36 | PDOC.FM ---
- Subjective Subjective: Mr. Sherwood was resting comfortably and quietly this morning and I did not wake him. When I visited he and his yesterday afternoon he was sitting up in bed and conversing in a pleasant manner. His , Estelle, expressed she would be willing for him to go to a rehab or snf stating "whatever we think is best." She also expressed he hasn't been eating much of his meals. - Objective Vital Signs & Weight: Vital Signs (12 hours) Temp Pulse Resp BP Pulse Ox 10/07/20 04:00 97.7 F 65 15 93/55 L 95 10/07/20 01:03 96 10/06/20 20:50 97.3 F L 100 14 114/77 92 L Weight Admit Weight 67.041 kg Weight 64.818 kg I&O: 10/05/20 10/06/20 10/07/20 06:59 06:59 06:59 Intake Total 1350 1420 Balance 1350 1420 Result Diagrams: 10/07/20 06:56 10/07/20 06:52 EKG Reviewed by me: Yes (tele: Afib 70-100s) Phys Exam - Physical Examination Constitutional: NAD HEENT: moist MMs, sclera anicteric Neck: no JVD Respiratory: no wheezing, no rales, no rhonchi, clear to auscultation bilateral Cardiovascular: RRR, no significant murmur Gastrointestinal: soft, no distention Musculoskeletal: no edema, pulses present Neurological: non-focal Skin: no rash Dx/Plan - Plan Plan: 75 yo M discharged on 09/28 for HAP Sepsis 2/2 Hospital-acquired pneumonia vs aspiration pneumonia/pneumonitis - Discharged home on 09/28 following clinical improvement of HAP on levaquin. Per , patient has been receiving antibiotics. - Tachycardic, tachypneic in ED, Tmax 103 at home. Received vanc and zosyn in ED. - WBC 12.6, 14.5, 14.9, 12.6, 13.3, 11.7, 11.3 - Procal 0.29, 0.24, 0.13 - CXR: left lobe infiltrate - Speech was suspicious for aspiration. Performed barium swallow study which showed no signs of aspiration. Approved patient for ground diet. - levaquin (10/02) and flagyl (10/01) - sputum culture pending - UA neg. UCx and BCx no growth to date - Based on lab studies, will discontinue antibiotics today and work towards placement for patient. Afib w/ RVR - Known history of Afib. Received 10mg of dilt in ED. Dilt drip discontinued at 13:22 on 10/02 - Metoprolol 200mg daily. Digoxin daily. - Yesterday patient was having 3-4 second pauses. Due to this he only received 100mg of metoprolol. Will continue with 100mg metoprolol today as patient's HR has been 70-100s yesterday and last night. Hx of COVID pneumonia - Hospitalized in Jul. First positive test 08/10 - Does not need precautions Chronic L1 compression fracture - Repeat imaging on last hospitalization showed fracture was stabled - Scheduled tylenol and ibuprofen - Patient has increased pain when he coughs or sneezes but otherwise his pain seems well controlled. Dementia - reports patient has become more agitated and has displayed personality changes since his admission for COVID. Discussed palliative care during last hospitalization and explained she was not ready. - Palliative Consult to discuss GOC. Tried to contact yesterday. - PT/OT consult - CM consult for placement after discharge: spoke with , Estelle, yesterday who says she is willing for patient to go to rehab or snf/ Hx of Hemorrhagic CVAx3 Epilepsy - Continue keppra Anxiety/ Depression - Continue mirtazapine and sertraline BPH - Continue tamsulosin DVT PPx: SCDs GI PPx: famotidine PCP: CORDELIA Dispo: Discontinue antibiotics. Work on placement for rehab or snf. Addendum - Attending - Attending Attestation Date/Time: 10/07/20 7538 I personally evaluated the patient and discussed the management with Dr. Castillo. I agree with the History, Examination, Assessment and Plan documented above with any addition or exceptions noted below. Patient stable. HR continues to be improved on home regimen. I suspect most of his presentation was related to him not receiving his medication as prescribed in the home setting. Continue discussions with his about the importance or rehab versus emt intermediate placement to adequately care for him.
[2020-10-07 07:08] LABS: #Eosinphils 0.2 thou/uL (0.0-0.7); #Lymphocytes 1.5 thou/uL (1.20-3.40); #Monocytes 1.1 thou/uL (0.11-0.59); #Neutrophils 8.4 thou/uL (1.40-6.50); %Basophils 0.3 % (0.0-1.0); %Lymphocytes 13.6 % (21.0-51.0); %Neutrophils 74.2 % (42.0-75.0); Hemoglobin 8.9 g/dL (14.0-18.0); Mean Corpuscular HGB CONC 31.7 g/dL (32.0-36.0); Mean Corpuscular Hemoglobin 27.1 pg (27.0-31.0); Mean Corpuscular Volume 85.6 fL (78.0-98.0); Mean Platelet Volume 6.5 fL (7.4-10.4); Platelet Count 511 thou/uL (130-400); Red Blood Cell (RBC) Count 3.29 mill/uL (4.70-6.10); White Blood Cell (WBC) Count 11.3 thou/uL (4.8-10.8)
[2020-10-07 07:28] LABS: Anion Gap 15 mmol/L (10-20); BUN (Urea Nitrogen) 14 mg/dL (8.4-25.7); Calc. Creatinine Clearance 76 mL/min (70-130); Calcium 7.8 mg/dL (7.8-10.44); Carbon Dioxide 18 mmol/L (23-31); Chloride 109 mmol/L (98-107); Glucose 94 mg/dL (83-110); Potassium 4.2 mmol/L (3.5-5.1); Sodium 138 mmol/L (136-145)
[2020-10-07] MEDS: Digoxin 0.125 MG TAB PO SCH (09:43)
[2020-10-07] MEDS: Famotidine 20 MG TAB PO SCH ×2 (09:44→21:52)
[2020-10-07] MEDS: levETIRAcetam 500 mg/5 ml Oral Solution PO SCH ×2 (09:44→21:53)
[2020-10-07] MEDS: Tamsulosin HCl 0.4 MG CAP PO SCH (21:52)
[2020-10-07] MEDS: Mirtazapine 15 MG TAB PO SCH (21:52)
[2020-10-08] MEDS: Acetaminophen 325 MG TAB PO SCH ×5 (00:08→23:56)
[2020-10-08] MEDS: Ibuprofen 800 MG TAB PO SCH ×5 (00:09→23:56)
--- NOTE | 2020-10-08 06:27 | PDOC.FM ---
- Subjective Subjective: Mr. Sherwood is not pleased to be in the hospital this morning but lists no complaints/concerns. He was not cooperative in answering any other questions. - Objective Vital Signs & Weight: Vital Signs (12 hours) Temp Pulse Resp BP Pulse Ox 10/08/20 05:23 97.5 F L 63 16 101/58 L 94 L 10/08/20 04:00 97.7 F 62 15 115/58 L 94 L 10/07/20 20:00 97.6 F 66 16 97/54 L 92 L Weight Admit Weight 67.041 kg Weight 64.773 kg I&O: 10/06/20 10/07/20 10/08/20 06:59 06:59 06:59 Intake Total 1420 120 Balance 1420 120 Result Diagrams: 10/08/20 07:00 10/08/20 07:00 Phys Exam - Physical Examination Constitutional: NAD Neck: supple Respiratory: clear to auscultation bilateral Cardiovascular: no significant murmur AFib Musculoskeletal: no edema, pulses present (2+ radial) Displeased affect, at baseline. A&O could not be eval Skin: no rash Dx/Plan - Plan Plan: 75 yo M discharged on 09/28 for HAP. Re-admitted for worsening back pain. Sepsis 2/2 Hospital-acquired pneumonia vs aspiration pneumonia/pneumonitis - Discharged home on 09/28 on levaquin for HAP - CXR: left lobe infiltrate - SIRS criteria in ED, resolved. Leukocytosis, resolved. Elevated procal, resolved - UA, UCx, BCx neg - levaquin (10/02) and flagyl (10/01) d/c on 10/07 - sputum culture pending - Speech was suspicious for aspiration. Barium swallow showed no signs of aspiration. Approved patient for ground diet. - Placement pending now that is agreeable Afib w/ RVR - Metoprolol and PO Digoxin daily. - Currently rate-controlled AFib in the 80s - Continue to monitor HR and tele strip Hx of COVID pneumonia - Hospitalized in Jul. - Positive tests on 08/10 and 09/25 - Does not need precautions Chronic L1 compression fracture - Repeat imaging on last hospitalization showed fracture was stable - Scheduled tylenol and ibuprofen - Patient has increased pain when he coughs or sneezes but otherwise his pain seems well controlled. Dementia - reports patient has become more agitated and has displayed personality changes since his admission for COVID. - Palliative Consult to discuss GOC. - CM consult for placement after discharge: spoke with , Estelle, on 10/07 who says she is willing for patient to go to rehab or snf - PT/OT consulted and recommend SNF Hx of Hemorrhagic CVAx3 Epilepsy - Continue keppra Anxiety/ Depression - Continue mirtazapine and sertraline BPH - Continue tamsulosin DVT PPx: SCDs GI PPx: famotidine PCP: CORDELIA Dispo: Work on placement for rehab or snf.
[2020-10-08 07:19] LABS: #Eosinphils 0.4 thou/uL (0.0-0.7); #Lymphocytes 1.9 thou/uL (1.20-3.40); #Monocytes 1.1 thou/uL (0.11-0.59); #Neutrophils 7.3 thou/uL (1.40-6.50); %Basophils 0.4 % (0.0-1.0); %Eosinophils 3.6 % (0.0-10.0); %Lymphocytes 18.1 % (21.0-51.0); %Monocytes 9.9 % (0.0-10.0); Mean Corpuscular HGB CONC 31.2 g/dL (32.0-36.0); Mean Corpuscular Hemoglobin 26.9 pg (27.0-31.0); Mean Corpuscular Volume 86.1 fL (78.0-98.0); Mean Platelet Volume 7.1 fL (7.4-10.4); Platelet Count 522 thou/uL (130-400); RBC Distribution Width 15.2 % (11.5-14.5); Red Blood Cell (RBC) Count 3.36 mill/uL (4.70-6.10); White Blood Cell (WBC) Count 10.7 thou/uL (4.8-10.8)
[2020-10-08 07:38] LABS: Anion Gap 19 mmol/L (10-20); BUN (Urea Nitrogen) 17 mg/dL (8.4-25.7); Calc. Creatinine Clearance 70 mL/min (70-130); Carbon Dioxide 15 mmol/L (23-31); Chloride 113 mmol/L (98-107); Glucose 91 mg/dL (83-110); Potassium 4.5 mmol/L (3.5-5.1); Sodium 142 mmol/L (136-145)
--- NOTE | 2020-10-08 08:02 | PDOC.PALFU ---
Palliative Care Follow-up Note Attempted to coordinate with to revisit goal of care. Unable to reach, contact information left. PC will follow up 10/08/2020.
[2020-10-08] MEDS: levETIRAcetam 500 mg/5 ml Oral Solution PO SCH ×2 (08:48→21:02)
[2020-10-08] MEDS: Famotidine 20 MG TAB PO SCH ×2 (08:48→21:02)
[2020-10-08] MEDS: Digoxin 0.125 MG TAB PO SCH (08:49)
--- NOTE | 2020-10-08 14:07 | PRG ---
DATE OF SERVICE: 10/08/2020 Mr. Sherwood is not very verbal this morning. He has no obvious complaints. He is being followed for atrial fibrillation with RVR, which is currently under control as well as HAP pneumonia. Recent workup also showed significant compression fractures at L1. I suggest that we add calcitonin to his current pain regimen. From a pneumonia standpoint as well as atrial fibrillation standpoint, he seems to be improved. He was also previously hospitalized with COVID pneumonia in July. Job ID: [id number]
[2020-10-08 14:12] VITALS: BMI 20.2
[2020-10-08] MEDS: Tamsulosin HCl 0.4 MG CAP PO SCH (21:02)
[2020-10-08] MEDS: Mirtazapine 15 MG TAB PO SCH (21:02)
[2020-10-08] MEDS ORDERED: Sodium Chloride 0.9% 500 ML IV SCH (21:15)
[2020-10-09 01:35] LABS: SARS-CoV-2 MS2 Positive; SARS-CoV-2 N Gene Negative; SARS-CoV-2 S Gene Negative; SARS-CoV-2 by NAA Not Detected (NotDetected); SARS-CoV-2 orf1ab Negative
[2020-10-09] MEDS: Acetaminophen 325 MG TAB PO SCH ×3 (05:02→18:27)
[2020-10-09] MEDS: Ibuprofen 800 MG TAB PO SCH ×3 (05:02→18:28)
--- NOTE | 2020-10-09 05:51 | PDOC.FM ---
- Subjective Subjective: Mr. Sherwood states he had a good night last night and denies any complaints. He denies CP, SOB, any pain/discomfort. He is A&O to self only this am. He declined allowing me to do a PE. - Objective Vital Signs & Weight: Vital Signs (12 hours) Temp Pulse Resp BP Pulse Ox 10/09/20 03:38 94 L 10/09/20 03:21 97.6 F 75 14 114/55 L 93 L 10/08/20 22:30 110 H 104/58 L 10/08/20 20:00 97.3 F L 77 20 90/53 L 93 L Weight Admit Weight 67.041 kg Weight 64.501 kg I&O: 10/07/20 10/08/20 10/09/20 06:59 06:59 06:59 Intake Total 120 660 Balance 120 660 Result Diagrams: 10/08/20 07:00 10/08/20 07:00 Phys Exam - Physical Examination Constitutional: NAD Neck: supple, full ROM Neurological: non-focal, moves all 4 limbs Psychiatric: normal affect Deviation from normal: A&O to self Dx/Plan - Plan Plan: 75 yo M discharged on 09/28 for HAP. Re-admitted for worsening back pain. Sepsis 2/2 Hospital-acquired pneumonia vs aspiration pneumonia/pneumonitis - Discharged home on 09/28 on levaquin for HAP - CXR: left lobe infiltrate - SIRS criteria in ED, resolved. Leukocytosis, resolved. Elevated procal, resolv ed - UA, UCx, BCx neg - levaquin (10/02) and flagyl (10/01) d/c on 10/07 - sputum culture pending - [facility] approved patient for ground diet. - Placement pending now that is agreeable * Neg COVID swab obtained - was required prior to facilities considering his acceptance Afib w/ RVR - Metoprolol and PO Digoxin daily. - Currently rate-controlled AFib in the 80s - Continue to monitor HR and tele strip Hx of COVID pneumonia - Hospitalized in Jul. - Positive tests on 08/10 and 09/25 - Neg test on 10/08 - Does not need precautions Chronic L1 compression fracture - Repeat imaging on last hospitalization showed fracture was stable - Scheduled tylenol and ibuprofen - Patient has increased pain when he coughs or sneezes but otherwise his pain seems well controlled. Dementia - reports patient has become more agitated and has displayed personality changes since his admission for COVID. - Palliative Consult to discuss GOC. - CM consult for placement after discharge: spoke with , Estelle, on 10/07 who says she is willing for patient to go to rehab or snf - PT/OT consulted and recommend SNF Hx of Hemorrhagic CVAx3 Epilepsy - Continue keppra Anxiety/ Depression - Continue mirtazapine and sertraline BPH - Continue tamsulosin DVT PPx: SCDs GI PPx: famotidine PCP: CORDELIA Dispo: Discharge pending placement
[2020-10-09] MEDS ORDERED: Calcitonin,Salmon,Synthetic 200 Units 3.7 ML PUMP L NARE SCH (09:00)
[2020-10-09] MEDS: Digoxin 0.125 MG TAB PO SCH (09:10)
[2020-10-09] MEDS: levETIRAcetam 500 mg/5 ml Oral Solution PO SCH (09:10)
[2020-10-09] MEDS: Famotidine 20 MG TAB PO SCH (09:10)
--- NOTE | 2020-10-09 13:46 | PRG ---
DATE OF SERVICE: 10/09/2020 I have read the note and gone over the note on Mr. Sherwood with Dr. Parks and I agree with her assessment and plan. Job ID: [id number]
[2020-10-09 15:35] VITALS: BP 107/58; TEMP 97.5
--- NOTE | 2020-10-09 15:44 | PDOC.FMACP ---
Advance Care Planning - Problem (1) Sepsis Status: Acute Code(s): A41.9 - SEPSIS, UNSPECIFIED ORGANISM (2) Afib Status: Acute Code(s): I48.91 - UNSPECIFIED ATRIAL FIBRILLATION (3) Palliative care encounter Status: Acute Code(s): Z51.5 - ENCOUNTER FOR PALLIATIVE CARE (4) Declining functional status Status: Acute Code(s): R53.81 - OTHER MALAISE (5) History of 2019 novel coronavirus disease (COVID-19) Status: Acute Code(s): Z86.19 - PERSONAL HISTORY OF OTHER INFECTIOUS AND PARASITIC DISEASES (6) Dementia Status: Acute Code(s): F03.90 - UNSPECIFIED DEMENTIA WITHOUT BEHAVIORAL DISTURBANCE - Note Participants: family, palliative care Summary: Palliative Care has addressed Advanced Care Planning on multiple occasions with patient as Mr Sherwood is oriented x1. The diagnosis, prognosis and goals of care were discussed. Appropriate forms and documentation to accomplish the goals of care were discussed. All questions were answered. *Transitioned to DNAR status, consent signed *Attempting to coordinate Mrs Sherwood to sign OOHDNAR prior to discharge / Multiple messages left by Palliative care registrar. *Mrs Sherwood agreed for transition to rehab, she remains with difficulity in grasping reality of decline related to disease progression. Continued support. Please also refer to Palliative Care RN notes in note section. Time Spent (mins): 15
--- NOTE | 2020-10-10 13:20 | DIS ---
DATE OF ADMISSION: 10/01/2020 DATE OF DISCHARGE: 10/09/2020 DISCHARGE ATTENDING: Ezekiel Christensen MD CONSULTS: Speech Therapy (10/01), Palliative Care (10/01), and Case Management (10/01, 10/04). PROCEDURE: Modified barium swallow with no signs of aspiration (10/05). PRIMARY DIAGNOSES: 1. Pneumonia. 2. Atrial fibrillation with rapid ventricular response. SECONDARY DIAGNOSES: 1. Chronic back pain, 2/2, L1 compression fracture. 2. Hemorrhagic stroke x3. 3. Epilepsy. 4. Major depressive disorder/anxiety. 5. BPH. 6. Dementia. 7. Legally blind. DISCHARGE MEDICATIONS: 1. Intranasal calcitonin 1 spray in the nares daily for back pain. 2. Keppra 1000 mg p.o. b.i.d. 3. Digoxin 0.125 mg p.o. q.h.s. 4. Sertraline 100 mg p.o. daily. 5. Mirtazapine 7.5 mg p.o. q.h.s. 6. Metoprolol succinate 100 mg p.o. daily. 7. Famotidine 20 mg p.o. b.i.d. 8. Tamsulosin 0.4 mg p.o. q.h.s. DISCONTINUED MEDICATION: Levofloxacin. HISTORY OF PRESENT ILLNESS/HOSPITAL COURSE: This is a 75-year-old, who presented via EMS due to back pain. One week prior, he had been admitted to the hospital for hospital-acquired pneumonia and discharged on Levaquin. Per his , he has been doing well aside from the back pain, which scheduled Tylenol was not helping. He was febrile at home, and his described personality changes since his admission in July for COVID pneumonia. He was tachycardic, tachypneic in the ED, and febrile at home, so he received vancomycin and Zosyn in the ED. He had a white count of 12.6 compared to a count of 9.2 on his discharge date of 09/28. His procal was 0.29, and chest x-ray showed a left lobe infiltrate. The Zosyn was discontinued and replaced with cefepime. His urinalysis was negative for leukocytes, bacteria, and nitrites. His urine and blood cultures were negative. A sputum culture was ordered but never obtained. He came in with AFib with RVR, with a known history of AFib. He was started on a diltiazem drip but ultimately weaned down to oral digoxin and metoprolol, which were his home medications. The patient was ultimately taken off the vancomycin and cefepime and put back on Levaquin due to a procal showing adequate treatment. Metronidazole was started to cover the possibility of aspiration pneumonia, although a modified barium swallow, which was performed, showed no aspiration. Palliative Care was consulted due to concern for the patient's family not being able to adequately take care of him at home. Similar concerns have been present on previous hospitalizations, and ultimately, his believed that placement would be beneficial. Ultimately, the patient was discharged to [facility] for SNF placement. DISPOSITION: Stable. DISCHARGE INSTRUCTIONS: Location: [facility] SNF facility. Diet: Heart healthy and chopped textures per [employer] recs. Activity: As tolerated. Followup: The patient is encouraged to follow up with his PCP, Dr. Sahil Padron, within 10 days of discharge. Job ID: [id number]
--- NOTE | 2020-10-13 10:56 | EKG ---
Test Reason : Blood Pressure : / mmHG Vent. Rate : 115 BPM Atrial Rate : 122 BPM P-R Int : 000 ms QRS Dur : 082 ms QT Int : 312 ms P-R-T Axes : 000 006 -53 degrees QTc Int : 431 ms Atrial fibrillation with rapid ventricular response Abnormal ECG Confirmed by VIOLETA ANDRE DO ([id number]), advertising editor LAVINIA ISSA ([id number]) on 10/13/2020 10:55:35 AM Referred By: Confirmed By:VIOLETA ANDRE DO
--- NOTE | 2020-10-26 12:12 | EKG ---
Test Reason : Blood Pressure : / mmHG Vent. Rate : 079 BPM Atrial Rate : 040 BPM P-R Int : 000 ms QRS Dur : 082 ms QT Int : 348 ms P-R-T Axes : 000 022 019 degrees QTc Int : 399 ms Atrial fibrillation Low voltage QRS Abnormal ECG When compared with ECG of 01-OCT-2020 13:51, (Unconfirmed) Nonspecific T wave abnormality, improved in Inferior leads Confirmed by DR. Sada MORA ([id number]) on 10/26/2020 12:11:29 PM Referred By: DELMER Confirmed By:DR. Sada MORA
== END 2020-10-09 19:25 | DRG 871 ==
LOC: ERS 12:26 → 2NO 19:00
PROVIDERS: ADMIT Student in an Organized Health Care Education/Training Program; ATTEND Student in an Organized Health Care Education/Training Program
DX: A41.9 Sepsis, unspecified organism (principal); J18.9 Pneumonia, unspecified organism; F41.9 Anxiety disorder, unspecified; N40.0 Benign prostatic hyperplasia without lower urinary tract symptoms; G40.909 Epilepsy, unspecified, not intractable, without status epilepticus; M19.90 Unspecified osteoarthritis, unspecified site; R53.81 Other malaise; I48.91 Unspecified atrial fibrillation; M48.56XD Collapsed vertebra, not elsewhere classified, lumbar region, subsequent encounter for fracture with routine healing; F32.9 Major depressive disorder, single episode, unspecified; F03.90 Unspecified dementia, unspecified severity, without behavioral disturbance, psychotic disturbance, mood disturbance, and anxiety; Z51.5 Encounter for palliative care; Z79.899 Other long term (current) drug therapy; Z79.2 Long term (current) use of antibiotics; Z86.73 Personal history of transient ischemic attack (TIA), and cerebral infarction without residual deficits; Z86.19 Personal history of other infectious and parasitic diseases; Z20.828 Contact with and (suspected) exposure to other viral communicable diseases
CPT/HCPCS: 36415; 36416; 51701; 71045; 74230; 80048; 80053; 81003; 81015; 82550; 83605; 83735; 84145; 84443; 84484; 85025; 87040; 87086; 87635; 93005; 93010; 94760; 96365; 96367; 96375; J0692; J1160; J1885; J1953; J1956; J2543; J3370; J3490; U0003